=== PATIENT | female | born 1955 | race Caucasian/White ===

== ENCOUNTER → 2016-12-04 | Outpatient (REF) | payer OTHER | LOC: M SFHCWAGY 15:04 | PROVIDERS: ATTEND Nurse Practitioner Family | DX: Z12.4 Encounter for screening for malignant neoplasm of cervix (principal); N39.46 Mixed incontinence | CPT/HCPCS: 81001; 87086; G0123 ==

== ENCOUNTER → 2016-12-04 | Outpatient (CLI) | payer OTHER ==
--- NOTE | 2016-12-04 15:40 | REPMRS ---
Patient History The patient states she had a clinical breast exam in Patient is postmenopausal. No known family history of cancer. Benign excisional biopsy of the left breast, 1997. Digital Woman Screen Mammo: December 04, 2016 - Exam #: [id number] Bilateral CC and MLO view(s) were taken. Technologist: Vane Langley, Technologist Prior study comparison: 2010, digital bilateral screening mammo performed at [facility]. FINDINGS: There are scattered fibroglandular densities. There has been no change in the appearance of the mammogram from the prior studies. There is a mild amount of residual fibroglandular tissue which is fairly symmetric. There is no interval development of dominant mass, architectural distortion, or clustered microcalcification suggestive of malignancy. ASSESSMENT: BI-RADS/ACR category 1 mammogram. Negative. Recommendation Routine screening mammogram in 1 year (for women over age 40). This mammogram was interpreted with the aid of an FDA-approved computer-aided dectection system. Electronically Signed By: Jayant Leiva MD 12/04/16 [id number]
== END ==
LOC: M WHC 14:23
PROVIDERS: ATTEND Nurse Practitioner Family
DX: Z12.31 Encounter for screening mammogram for malignant neoplasm of breast (principal); Z78.0 Asymptomatic menopausal state

== ENCOUNTER → 2016-12-17 | Outpatient (CLI) | payer OTHER ==
--- NOTE | 2016-12-17 11:43 | REP ---
Clinical: Sprain. Technique: AP, lateral, bilateral oblique views of the left foot. Findings: Age-related degenerative changes to the mid and hind foot including areas of subchondral sclerosis primarily noted at the cuboid and calcaneus. No acute fracture or dislocation. Impression: Age-related degenerative changes to the mid and hind foot. Signed by Sergio Chatman MD 12/17/2016 11:34 A
== END ==
LOC: M ADAMS 11:20
PROVIDERS: ATTEND Physician Assistant Medical
DX: S93.602A Unspecified sprain of left foot, initial encounter (principal); M19.072 Primary osteoarthritis, left ankle and foot; X58.XXXA Exposure to other specified factors, initial encounter; Y93.9 Activity, unspecified; Y92.9 Unspecified place or not applicable; Y99.8 Other external cause status

== ENCOUNTER → 2017-10-10 | Outpatient (REF) | payer OTHER ==
[2017-10-10 11:57] LABS: BASO # 0.1 10^3/uL (0.0-0.2); BASO % 0.7 % (0.0-1.0); EOS # 0.2 10^3/uL (0.0-0.50); EOS % 2.5 % (0.0-3.0); IMMATURE GRANULOCYTE % 0.4 % (0-0); LYMPH # 1.8 10^3/uL (1.5-4.5); LYMPH % 23.9 % (24.0-44.0); MEAN CORPUSCULAR HEMOGLOBIN 28.5 pg (27.0-33.0); MEAN CORPUSCULAR HGB CONC 32.4 g/dl (32.0-36.5); MEAN CORPUSCULAR VOLUME 87.8 fl (80.0-96.0); MONO # 0.5 10^3/uL (0.0-0.8); MONO % 6.7 % (0.0-5.0); NEUTROPHILS # 4.9 10^3/uL (1.8-7.7); NEUTROPHILS % 65.8 % (36.0-66.0); PLATELET COUNT, AUTOMATED 301 10^3/uL (150-450); RED CELL DISTRIBUTION WIDTH 14.2 % (11.5-14.5); WHITE BLOOD COUNT 7.5 10^3/uL (4.0-10.0)
[2017-10-10 12:25] LABS: ALBUMIN 3.6 GM/DL (3.2-5.2); ALBUMIN/GLOBULIN RATIO 1.06 (1.00-1.93); ALKALINE PHOSPHATASE 82 U/L (45-117); ALT/SGPT 33 U/L (12-78); ANION GAP 7 MEQ/L (8-16); AST/SGOT 16 U/L (7-37); BILIRUBIN,TOTAL 0.6 MG/DL (0.2-1.0); BLOOD UREA NITROGEN 16 MG/DL (7-18); CALCIUM LEVEL 8.6 MG/DL (8.8-10.2); CARBON DIOXIDE LEVEL 27 MEQ/L (21-32); CHLORIDE LEVEL 107 MEQ/L (98-107); CHOLESTEROL LEVEL 202 MG/DL (<200); CREATININE FOR GFR 0.61 MG/DL (0.55-1.02); GLOMERULAR FILTRATION RATE > 60.0 (>45); GLUCOSE, FASTING 100 MG/DL (80-110); POTASSIUM SERUM 4.1 MEQ/L (3.5-5.1); SODIUM LEVEL 141 MEQ/L (136-145); TRIGLYCERIDES LEVEL 183 MG/DL (<150)
== END ==
LOC: M LABDRAW1 11:42
PROVIDERS: ATTEND Family Medicine
DX: E03.9 Hypothyroidism, unspecified (principal); E78.5 Hyperlipidemia, unspecified; R73.01 Impaired fasting glucose

== ENCOUNTER → 2018-09-16 | Outpatient (CLI) | payer OTHER | LOC: M ADAMS 12:48 | DX: M25.572 Pain in left ankle and joints of left foot (principal) | CPT/HCPCS: 73610 ==

== ENCOUNTER → 2018-12-03 | Outpatient (REF) | payer OTHER ==
[2018-12-03 11:11] LABS: BASO # 0.1 10^3/uL (0.0-0.2); BASO % 0.7 % (0.0-1.0); EOS # 0.2 10^3/uL (0.0-0.50); EOS % 2.9 % (0.0-3.0); HEMATOCRIT 42.7 % (36.0-47.0); HEMOGLOBIN 13.3 g/dl (12.0-15.5); LYMPH # 1.7 10^3/uL (1.5-4.5); LYMPH % 20.6 % (24.0-44.0); MEAN CORPUSCULAR HEMOGLOBIN 27.9 pg (27.0-33.0); MEAN CORPUSCULAR HGB CONC 31.1 g/dl (32.0-36.5); MEAN CORPUSCULAR VOLUME 89.5 fl (80.0-96.0); MONO # 0.6 10^3/uL (0.0-0.8); MONO % 6.9 % (0.0-5.0); NEUTROPHILS # 5.7 10^3/uL (1.8-7.7); NEUTROPHILS % 68.3 % (36.0-66.0); PLATELET COUNT, AUTOMATED 325 10^3/uL (150-450); RED BLOOD COUNT 4.77 10^6/uL (4.00-5.40); WHITE BLOOD COUNT 8.4 10^3/uL (4.0-10.0)
[2018-12-03 11:20] LABS: ALBUMIN 3.6 GM/DL (3.2-5.2); ALT/SGPT 22 U/L (12-78); BILIRUBIN,TOTAL 0.4 MG/DL (0.2-1.0); BLOOD UREA NITROGEN 19 MG/DL (7-18); CALCIUM LEVEL 8.9 MG/DL (8.8-10.2); CARBON DIOXIDE LEVEL 28 MEQ/L (21-32); CHLORIDE LEVEL 108 MEQ/L (98-107); CHOLESTEROL LEVEL 168 MG/DL (<200); CREATININE FOR GFR 0.62 MG/DL (0.55-1.30); FREE T3 2.8 PG/ML (2.2-4.0); FREE T4 0.94 NG/DL (0.76-1.46); GLOMERULAR FILTRATION RATE > 60.0 (>45); GLUCOSE, FASTING 117 MG/DL (70-100); HDL CHOLESTEROL 50 MG/DL (>40); LDL CHOLESTEROL 90 MG/DL (<100); NON-HDL-C 118 MG/DL; POTASSIUM SERUM 4.7 MEQ/L (3.5-5.1); SODIUM LEVEL 141 MEQ/L (136-145); TOTAL PROTEIN 6.8 GM/DL (6.4-8.2); TRIGLYCERIDES LEVEL 142 MG/DL (<150)
[2018-12-03 11:55] LABS: HEMOGLOBIN A1c 5.6 %
[2018-12-04 10:04] LABS: HEPATITIS C VIRUS ABY INDEX 0.1 INDEX (<0.8)
== END ==
LOC: M LABDRAW1 10:24
PROVIDERS: ATTEND Family Medicine
DX: Z13.818 Encounter for screening for other digestive system disorders (principal); E03.9 Hypothyroidism, unspecified; R73.01 Impaired fasting glucose; I10 Essential (primary) hypertension

== ENCOUNTER → 2018-12-16 | Outpatient (REF) | payer OTHER ==
[2018-12-16 13:21] LABS: HEMATOCRIT 43.3 % (36.0-47.0); HEMOGLOBIN 13.6 g/dl (12.0-15.5); MEAN CORPUSCULAR HGB CONC 31.4 g/dl (32.0-36.5); MEAN CORPUSCULAR VOLUME 89.3 fl (80.0-96.0); PLATELET COUNT, AUTOMATED 324 10^3/uL (150-450); RED BLOOD COUNT 4.85 10^6/uL (4.00-5.40); WHITE BLOOD COUNT 8.4 10^3/uL (4.0-10.0)
[2018-12-16 13:28] LABS: APPEARANCE, URINE CLEAR (CLEAR); BACTERIA, URINE AUTO NEGATIVE (NEGATIVE); BILIRUBIN, URINE AUTO NEGATIVE (NEGATIVE); BLOOD, URINE BLOOD NEGATIVE (NEGATIVE); GLUCOSE, URINE (UA) AUTO NEGATIVE (NEGATIVE); KETONE, URINE AUTO NEGATIVE (NEGATIVE); LEUKOCYTE ESTERASE, URINE AUTO NEGATIVE (NEGATIVE); NITRITE, URINE AUTO NEGATIVE (NEGATIVE); PROTEIN, URINE AUTO NEGATIVE (NEGATIVE); RBC, URINE AUTO 0 /HPF (0-3); SPECIFIC GRAVITY URINE AUTO 1.018 (1.002-1.035); SQUAMOUS EPITHELIAL CELL UR AU 0 /HPF (0-6); UROBILINOGEN, URINE AUTO 0.2 mg/dL (0.0-2.0); WBC, URINE AUTO 1 /HPF (0-3)
[2018-12-16 13:42] LABS: COLOR, URINE YELLOW (YELLOW)
[2018-12-16 13:44] LABS: INR 0.95; PROTHROMBIN TIME 12.8 SECONDS (12.1-14.4)
[2018-12-16 13:45] LABS: PARTIAL THROMBOPLASTIN TIME 33.3 SECONDS (25.4-37.6)
== END ==
LOC: M LABDRAW1 12:44
PROVIDERS: ATTEND Student in an Organized Health Care Education/Training Program
DX: Z01.818 Encounter for other preprocedural examination (principal); N39.3 Stress incontinence (female) (male)

== ENCOUNTER → 2019-01-01 | Outpatient (CLI) | payer OTHER ==
--- NOTE | 2019-01-02 05:02 | REP ---
Clinical: Lung screening. Comparison: None Technique: Axial low-dose noncontrast images from the thoracic inlet to the upper abdomen using lung screening technique. Findings: Lung forman demonstrate chronic interstitial changes with mild bronchiectasis as well as mild/moderate subpleural fibrosis and very subtle areas of ground-glass opacity which limit evaluation for small nodules. A 6.5 mm soft tissue nodule in the periphery of the left lower lobe is identified but remains stable compared to 2011. No further significant acute nodule or mass lesion is identified. No focal consolidation, effusion, or pneumothorax. Mediastinal and possible hilar adenopathy suspected. Impression: Lung-RADS category II-S. While no definite suspicious nodule is appreciated, significant findings as described above limit evaluation. Initial followup examination at 6 months may be warranted. Electronically Signed by Sergio Chatman MD 01/02/2019 04:53 A
== END ==
LOC: M RAD 11:08
PROVIDERS: ATTEND Nurse Practitioner Family
DX: Z87.891 Personal history of nicotine dependence (principal); R91.8 Other nonspecific abnormal finding of lung field; R91.1 Solitary pulmonary nodule

== ENCOUNTER → 2019-03-31 | Outpatient (CLI) | payer MEDICARE, MEDICAID ==
--- NOTE | 2019-03-31 12:40 | REP ---
CT CHEST WITHOUT IV CONTRAST: CT chest performed without IV contrast with high resolution axial 1 mm slice thickness. Sagittal and coronal reconstruction images are performed. There is diffuse moderate degree of interstitial fibrosis, to a greater extent in the periphery of both lungs. These changes involve all lobes. There is mild bronchiectasis also involving all lobes, more so in the lower lobes bilaterally. There is mild diffuse peripheral emphysematous change. Moderate diffuse subpleural fibrosis is noted. 6 mm nodular density in the left lower lobe has remained stable since the CT of 07/20/2011. Mildly enlarged right paratracheal lymph node measures 1.5 cm in a precarinal lymph node measures 1.3 cm in short axis. A few other smaller lymph nodes are seen in the subcarinal and hilar regions. Heart is not enlarged. There is no pleural or pericardial effusion. Patient has had a prior cholecystectomy with no other definite abnormality in the visualized upper abdomen. There are degenerative changes of the spine. IMPRESSION: Diffuse moderate interstitial fibrosis predominantly in any subpleural location with associated mild emphysematous changes. There is also mild diffuse bronchiectasis, more so inferiorly. Stable benign 6 mm nodule left lower lobe. Mildly enlarged lymph nodes are seen in the right paratracheal and precarinal regions. Electronically Signed by Jayant Leiva MD 04/01/2019 11:34 A
== END ==
LOC: M RAD 11:01
PROVIDERS: ATTEND Nurse Practitioner Family
DX: R06.00 Dyspnea, unspecified (principal); J47.1 Bronchiectasis with (acute) exacerbation; R91.1 Solitary pulmonary nodule; R59.0 Localized enlarged lymph nodes

== ENCOUNTER → 2019-11-18 | Outpatient (CLI) | payer MEDICARE, MEDICAID ==
--- NOTE | 2019-11-18 13:29 | REP ---
Right foot four views: There is a fracture at the base of the fifth digit metatarsal. This may be old. Correlation with clinical point tenderness is recommended. Mineralization and joint spaces are otherwise unremarkable. There are no calcifications. There are calcaneal plantar and Achilles spurs. Impression: Fifth digit metatarsal base fracture, possibly old. Calcaneal spurs. Electronically Signed by Jayant Paul MD 11/18/2019 01:21 P
--- NOTE | 2019-11-18 14:25 | REP ---
Right ankle four views : There is no fracture or dislocation. Mineralization and joint spaces are normal. There are no calcifications or foreign bodies. There are calcaneal Achilles and plantar spurs. Impression: Negative right ankle . There are calcaneal spurs. Electronically Signed by Jayant Paul MD 11/18/2019 02:16 P
== END ==
LOC: M ADAMS 11:27
PROVIDERS: ATTEND Nurse Practitioner Family
DX: S92.351A Displaced fracture of fifth metatarsal bone, right foot, initial encounter for closed fracture (principal); M77.31 Calcaneal spur, right foot; X58.XXXA Exposure to other specified factors, initial encounter; Y92.9 Unspecified place or not applicable; M76.61 Achilles tendinitis, right leg

== ENCOUNTER → 2019-12-03 | Outpatient (REF) | payer MEDICARE, MEDICAID ==
[2019-12-03 13:04] LABS: HEMATOCRIT 45.5 % (36.0-47.0); HEMOGLOBIN 14.2 g/dl (12.0-15.5); MEAN CORPUSCULAR HEMOGLOBIN 28.1 pg (27.0-33.0); MEAN CORPUSCULAR HGB CONC 31.2 g/dl (32.0-36.5); MEAN CORPUSCULAR VOLUME 89.9 fl (80.0-96.0); PLATELET COUNT, AUTOMATED 332 10^3/uL (150-450); RED BLOOD COUNT 5.06 10^6/uL (4.00-5.40)
[2019-12-03 13:37] LABS: ALBUMIN 3.6 GM/DL (3.2-5.2); ALT/SGPT 23 U/L (12-78); BILIRUBIN,TOTAL 0.6 MG/DL (0.2-1.0); BLOOD UREA NITROGEN 14 MG/DL (7-18); CALCIUM LEVEL 8.8 MG/DL (8.8-10.2); CARBON DIOXIDE LEVEL 26 MEQ/L (21-32); CHLORIDE LEVEL 108 MEQ/L (98-107); CHOLESTEROL LEVEL 180 MG/DL (<200); CREATININE FOR GFR 0.68 MG/DL (0.55-1.30); FREE T3 2.4 PG/ML (2.2-4.0); FREE T4 0.98 NG/DL (0.76-1.46); GLOMERULAR FILTRATION RATE > 60.0 (>45); GLUCOSE, FASTING 105 MG/DL (70-100); HDL CHOLESTEROL 50 MG/DL (>40); LDL CHOLESTEROL 94 MG/DL (<100); NON-HDL-C 130 MG/DL; POTASSIUM SERUM 4.2 MEQ/L (3.5-5.1); SODIUM LEVEL 141 MEQ/L (136-145); TRIGLYCERIDES LEVEL 182 MG/DL (<150)
== END ==
LOC: M LABDRAW1 08:48
PROVIDERS: ATTEND Family Medicine
DX: E03.9 Hypothyroidism, unspecified (principal); I10 Essential (primary) hypertension; R73.01 Impaired fasting glucose

== ENCOUNTER → 2019-12-09 | Outpatient (REF) | payer MEDICARE, MEDICAID ==
[2019-12-09 12:15] LABS: BASO # 0.1 10^3/uL (0.0-0.2); BASO % 0.6 % (0.0-1.0); EOS # 0.4 10^3/uL (0.0-0.5); EOS % 3.7 % (0.0-3.0); HEMATOCRIT 42.7 % (36.0-47.0); HEMOGLOBIN 13.7 g/dl (12.0-15.5); LYMPH # 1.1 10^3/uL (1.5-5.0); LYMPH % 11.2 % (24.0-44.0); MEAN CORPUSCULAR HEMOGLOBIN 28.3 pg (27.0-33.0); MEAN CORPUSCULAR HGB CONC 32.1 g/dl (32.0-36.5); MEAN CORPUSCULAR VOLUME 88.2 fl (80.0-96.0); MONO # 0.6 10^3/uL (0.0-0.8); MONO % 6.3 % (0.0-5.0); NEUTROPHILS # 7.5 10^3/uL (1.5-8.5); NEUTROPHILS % 77.8 % (36.0-66.0); PLATELET COUNT, AUTOMATED 338 10^3/uL (150-450); RED BLOOD COUNT 4.84 10^6/uL (4.00-5.40); WHITE BLOOD COUNT 9.6 10^3/uL (4.0-10.0)
[2019-12-09 12:22] LABS: URIC ACID 5.9 MG/DL (2.6-6.0)
[2019-12-09 12:32] LABS: ERYTHROCYTE SEDIMENTATION RATE 63 mm/hr (0-30)
[2019-12-11 00:08] LABS: ANTI DOUBLE STRAND-DNA AB <1 IU/mL (0-9); ANTINUCLEAR ANTIBODIES DIRECT Positive (Negative); CYCLIC CITRULLINATED PEPTIDE > 250 units (0-19); Lyme Disease IgG/IgM Antibodie <0.91 ISR (0.00-0.90); Lyme Disease IgM Ab Quantitati <0.80 index (0.00-0.79); RNP ANTIBODIES 0.2 AI (0.0-0.9); SJOGREN'S ANTI SS-A 1.7 AI (0.0-0.9); SJOGREN'S ANTI SS-B <0.2 AI (0.0-0.9); SMITH ANTIBODIES <0.2 AI (0.0-0.9)
== END ==
LOC: M LABDRAW1 11:31
PROVIDERS: ATTEND Family Medicine
DX: M06.4 Inflammatory polyarthropathy (principal)

== ENCOUNTER 2020-03-27 21:47 | Emergency (ER) | payer MEDICARE, MEDICAID ==
[~2020-03-27] VITALS: Ht 162.6 cm; Wt 110.0 kg
[2020-03-27] MEDS ORDERED: FOLI1TAB11 PO (22:18)
[2020-03-27] MEDS ORDERED: PRED10TA2 PO (22:18)
[2020-03-27] MEDS ORDERED: MARIJUANA OIL (22:18)
[2020-03-27] MEDS ORDERED: HYDR-3713 PO (22:18)
[2020-03-27] MEDS ORDERED: AZEL1SPR3 INH (22:18)
[2020-03-27] MEDS ORDERED: SIMV10TA21 PO (22:18)
[2020-03-27] MEDS ORDERED: LISI10TA15 PO (22:18)
[2020-03-27] MEDS ORDERED: LEFL1TAB4 PO (22:18)
[2020-03-27] MEDS ORDERED: ALBU8.5H INH (22:18)
[2020-03-27] MEDS ORDERED: MORPHINE 4 MG/ML 1ML VIAL/SYRINGE (J2270) IV ONE (23:30)
[2020-03-27] MEDS ORDERED: METHOCARBAMOL 1,000 MG/10 ML VIAL (J2800) IV ONE (23:30)
[2020-03-27 23:59] LABS: BASO # 0.1 10^3/uL (0.0-0.2); BASO % 0.4 % (0.0-1.0); EOS # 0.2 10^3/uL (0.0-0.5); EOS % 1.1 % (0.0-3.0); HEMATOCRIT 39.8 % (36.0-47.0); LYMPH # 1.7 10^3/uL (1.5-5.0); LYMPH % 11.8 % (24.0-44.0); MEAN CORPUSCULAR HEMOGLOBIN 29.3 pg (27.0-33.0); MEAN CORPUSCULAR HGB CONC 32.7 g/dl (32.0-36.5); MEAN CORPUSCULAR VOLUME 89.8 fl (80.0-96.0); MONO # 1.1 10^3/uL (0.0-0.8); MONO % 7.9 % (0.0-5.0); NEUTROPHILS # 11.2 10^3/uL (1.5-8.5); PLATELET COUNT, AUTOMATED 317 10^3/uL (150-450); RED BLOOD COUNT 4.43 10^6/uL (4.00-5.40); WHITE BLOOD COUNT 14.3 10^3/uL (4.0-10.0)
[2020-03-28 00:27] LABS: ERYTHROCYTE SEDIMENTATION RATE 67 mm/hr (0-30)
[2020-03-28] MEDS ORDERED: MORPHINE 4 MG/ML 1ML VIAL/SYRINGE (J2270) IV ONE (00:45)
[2020-03-28 01:19] LABS: APPEARANCE, URINE HAZY (CLEAR); BACTERIA, URINE AUTO NEGATIVE (NEGATIVE); BILIRUBIN, URINE AUTO NEGATIVE (NEGATIVE); BLOOD, URINE BLOOD NEGATIVE (NEGATIVE); COLOR, URINE YELLOW (YELLOW); GLUCOSE, URINE (UA) AUTO NEGATIVE (NEGATIVE); KETONE, URINE AUTO 1+ mg/dL (NEGATIVE); LEUKOCYTE ESTERASE, URINE AUTO NEGATIVE (NEGATIVE); MUCUS, URINE SMALL (NEGATIVE); NITRITE, URINE AUTO NEGATIVE (NEGATIVE); PROTEIN, URINE AUTO NEGATIVE (NEGATIVE); RBC, URINE AUTO 2 /HPF (0-3); SPECIFIC GRAVITY URINE AUTO 1.024 (1.002-1.035); SQUAMOUS EPITHELIAL CELL UR AU 3 /HPF (0-6); UROBILINOGEN, URINE AUTO 0.2 mg/dL (0.0-2.0); WBC, URINE AUTO 2 /HPF (0-3)
[2020-03-28] MEDS ORDERED: HYDR-3713 PO (01:34)
[2020-03-28 01:58] VITALS: BP 155/104
== END 2020-03-28 01:59 | disposition home or self-care (01) ==
LOC: M ED 21:47
DX: M06.9 Rheumatoid arthritis, unspecified (principal); M54.5 Low back pain; I10 Essential (primary) hypertension; J84.10 Pulmonary fibrosis, unspecified; M41.9 Scoliosis, unspecified; M48.00 Spinal stenosis, site unspecified; Z79.899 Other long term (current) drug therapy; Z88.5 Allergy status to narcotic agent
CPT/HCPCS: 80047; 81001; 85025; 85652; 86140; 96374; 96375; 96376; 99284; J2270; J2800

== ENCOUNTER → 2020-07-03 | Outpatient (REF) | payer MEDICARE, MEDICAID ==
[~2020-07-03] MED LIST: ALBU8.5H INH; AZEL1SPR3 INH; FOLI1TAB11 PO; HYDR-3713 PO; LEFL1TAB4 PO; LISI10TA15 PO; MARIJUANA OIL; PRED10TA2 PO; SIMV10TA21 PO
== END ==
LOC: M LAB REF 13:11
PROVIDERS: ATTEND Physician Assistant
DX: J02.9 Acute pharyngitis, unspecified (principal)

== ENCOUNTER → 2020-07-21 | Outpatient (CLI) | payer MEDICARE, MEDICAID ==
--- NOTE | 2020-07-28 11:33 | REP ---
RIGHT SHOULDER SERIES HISTORY: Pain. TECHNIQUE: Three views of the right shoulder performed. FINDINGS: There is no acute fracture or dislocation. There is mild narrowing and spurring at the acromioclavicular and glenohumeral joints. There is some calcification of the coracoclavicular ligament. I see no other significant findings except for incidental note made of diffuse fibrotic change in the right lung. IMPRESSION: Mild degenerative changes. MTDD
== END ==
LOC: M ADAMS 11:14
PROVIDERS: ATTEND Physician Assistant
DX: M25.711 Osteophyte, right shoulder (principal)

== ENCOUNTER → 2020-11-09 | Outpatient (CLI) | payer MEDICARE, MEDICAID ==
--- NOTE | 2020-11-09 16:57 | REP ---
INDICATION: COUGH. COMPARISON: Comparison chest x-ray April 19, 2014. TECHNIQUE: Two views.. FINDINGS: There are bilateral patchy peripheral interstitial infiltrates suggestive of viral pneumonia. These are new findings when compared to the 2014 prior study. The pleural angles are sharp. Heart is not enlarged. There are degenerative changes in the thoracic spine. IMPRESSION: Bilateral patchy peripheral interstitial infiltrates suggestive of viral pneumonia. Commonly reported imaging features of COVID 19 pneumonia are present. Other processes such as influenza pneumonia, drug toxicity, and connective tissue disease can produce a similar pattern. . <Electronically signed by Mateusz Membreno > 11/09/20 [id number]
== END ==
LOC: M ADAMS 11:14
PROVIDERS: ATTEND Physician Assistant
DX: R91.8 Other nonspecific abnormal finding of lung field (principal); R05 Cough

== ENCOUNTER → 2020-11-22 | Outpatient (CLI) | payer MEDICARE, MEDICAID ==
--- NOTE | 2020-11-22 18:26 | REP ---
INDICATION: J84.9-INTERSTITIAL PULMONARY DISEASE, UNSPECIFIED. COMPARISON: 04/27/2020. TECHNIQUE: CT chest performed without the use of intravenous contrast. Sagittal and coronal reconstruction images are performed. FINDINGS: Lungs: There is no acute infiltrate. Moderate diffuse interstitial fibrotic changes seen, predominantly peripherally, stable. Mild diffuse subpleural honeycombing is noted. Bronchiectasis is again noted. There is no new nodular opacity. Mediastinum: A right paratracheal lymph node has decreased in size not 1.1 cm in short axis. Precarinal lymph node is also decreased in size, 1.3 cm in short axis. Leigh: No gross adenopathy. Axilla: No gross adenopathy. Pleura: No effusion. Heart: Not enlarged. Thoracic aorta: No aneurysm. Upper abdominal structures: Prior cholecystectomy. Visualized osseous structures: There are degenerative changes of the spine without compression deformity. IMPRESSION: Stable interstitial fibrosis. Decreased size of mediastinal lymph nodes. <Electronically signed by Jayant Leiva > 11/22/20 [id number]
== END ==
LOC: M RAD 17:17
PROVIDERS: ATTEND Physician Assistant
DX: J84.10 Pulmonary fibrosis, unspecified (principal)

== ENCOUNTER → 2020-12-01 | Outpatient (REF) | payer MEDICARE, MEDICAID ==
[2020-12-01 12:59] LABS: HEMATOCRIT 42.9 % (36.0-47.0); HEMOGLOBIN 13.6 g/dl (12.0-15.5); MEAN CORPUSCULAR HEMOGLOBIN 29.5 pg (27.0-33.0); MEAN CORPUSCULAR HGB CONC 31.7 g/dl (32.0-36.5); MEAN CORPUSCULAR VOLUME 93.1 fl (80.0-96.0); PLATELET COUNT, AUTOMATED 315 10^3/uL (150-450); RED BLOOD COUNT 4.61 10^6/uL (4.00-5.40); WHITE BLOOD COUNT 7.9 10^3/uL (4.0-10.0)
[2020-12-01 13:42] LABS: ALBUMIN 3.3 GM/DL (3.2-5.2); ALT/SGPT 23 U/L (12-78); BILIRUBIN,TOTAL 0.6 MG/DL (0.2-1.0); BLOOD UREA NITROGEN 17 MG/DL (7-18); CARBON DIOXIDE LEVEL 28 MEQ/L (21-32); CHLORIDE LEVEL 105 MEQ/L (98-107); CHOLESTEROL LEVEL 169 MG/DL (<200); CHOLESTEROL RISK RATIO 2.283 (<5); CREATININE FOR GFR 0.62 MG/DL (0.55-1.30); FREE T3 2.4 PG/ML (2.2-4.0); GLOMERULAR FILTRATION RATE > 60.0 (>45); GLUCOSE, FASTING 79 MG/DL (70-100); HDL CHOLESTEROL 74 MG/DL (>40); LDL CHOLESTEROL 63 MG/DL (<100); NON-HDL-C 95 MG/DL; POTASSIUM SERUM 3.6 MEQ/L (3.5-5.1); SODIUM LEVEL 140 MEQ/L (136-145); TOTAL PROTEIN 6.4 GM/DL (6.4-8.2); TRIGLYCERIDES LEVEL 159 MG/DL (<150)
[2020-12-01 13:44] LABS: HEMOGLOBIN A1c 5.4 %
== END ==
LOC: M LABDRWAD 12:31
PROVIDERS: ATTEND Family Medicine
DX: E03.9 Hypothyroidism, unspecified (principal); E78.5 Hyperlipidemia, unspecified; R73.01 Impaired fasting glucose; I10 Essential (primary) hypertension

== ENCOUNTER → 2021-03-16 | Outpatient (REF) | payer MEDICARE, MEDICAID ==
[2021-03-16 12:54] LABS: BASO # 0.1 10^3/uL (0.0-0.2); EOS # 0.3 10^3/uL (0.0-0.5); EOS % 2.1 % (0.0-3.0); LYMPH # 1.7 10^3/uL (1.5-5.0); LYMPH % 13.3 % (24.0-44.0); MEAN CORPUSCULAR HEMOGLOBIN 29.6 pg (27.0-33.0); MEAN CORPUSCULAR HGB CONC 31.1 g/dl (32.0-36.5); MEAN CORPUSCULAR VOLUME 95.1 fl (80.0-96.0); MONO # 0.9 10^3/uL (0.0-0.8); MONO % 7.4 % (2.0-8.0); NEUTROPHILS # 9.4 10^3/uL (1.5-8.5); NEUTROPHILS % 75.4 % (36.0-66.0); PLATELET COUNT, AUTOMATED 424 10^3/uL (150-450); RED BLOOD COUNT 4.73 10^6/uL (4.00-5.40); WHITE BLOOD COUNT 12.5 10^3/uL (4.0-10.0)
[2021-03-16 13:12] LABS: ALBUMIN 3.8 GM/DL (3.2-5.2); ALT/SGPT 18 U/L (12-78); BILIRUBIN,TOTAL 0.7 MG/DL (0.2-1.0); BLOOD UREA NITROGEN 15 MG/DL (7-18); C REACTIVE PROTEIN QUANTITATIV 1.02 MG/DL (0.00-0.30); CALCIUM LEVEL 9.5 MG/DL (8.8-10.2); CARBON DIOXIDE LEVEL 25 MEQ/L (21-32); CHLORIDE LEVEL 105 MEQ/L (98-107); GLOMERULAR FILTRATION RATE > 60.0 (>45); GLUCOSE, FASTING 85 MG/DL (70-100); POTASSIUM SERUM 4.4 MEQ/L (3.5-5.1); SODIUM LEVEL 137 MEQ/L (136-145); TOTAL PROTEIN 7.7 GM/DL (6.4-8.2)
[2021-03-16 13:30] LABS: ERYTHROCYTE SEDIMENTATION RATE 54 mm/hr (0-30)
== END ==
LOC: M LABDRWAD 12:16
PROVIDERS: ATTEND Family Medicine
DX: M06.9 Rheumatoid arthritis, unspecified (principal)

== ENCOUNTER 2021-07-25 09:49 | Emergency (ER) | payer MEDICARE, MEDICAID ==
[~2021-07-25] VITALS: Ht 162.6 cm; Wt 87.7 kg
[2021-07-25] MEDS ORDERED: NS 500 ML IV ONE (11:00)
[2021-07-25 11:54] LABS: BASO % 0.6 % (0.0-1.0); HEMATOCRIT 42.6 % (36.0-47.0); HEMOGLOBIN 14.3 g/dl (12.0-15.5); LYMPH # 0.3 10^3/uL (1.5-5.0); LYMPH % 5.9 % (24.0-44.0); MEAN CORPUSCULAR HEMOGLOBIN 28.5 pg (27.0-33.0); MEAN CORPUSCULAR HGB CONC 33.6 g/dl (32.0-36.5); MONO # 0.4 10^3/uL (0.0-0.8); MONO % 7.2 % (2.0-8.0); NEUTROPHILS # 4.7 10^3/uL (1.5-8.5); NEUTROPHILS % 85.2 % (36.0-66.0); PLATELET COUNT, AUTOMATED 137 10^3/uL (150-450); RED BLOOD COUNT 5.01 10^6/uL (4.00-5.40); WHITE BLOOD COUNT 5.5 10^3/uL (4.0-10.0)
--- NOTE | 2021-07-25 11:55 | REP ---
INDICATION: Coronavirus workup. COMPARISON: 11/09/2020 a two view exam TECHNIQUE: Portable FINDINGS: The technique utilized in obtaining the radiograph has magnified the cardiac silhouette and accentuated the interstitial markings. The patchy opacities seen previously have not changed significantly when the technical differences between the examinations are taken into consideration. The pleural angles remain sharp. No new abnormal opacities have developed. The cardiomediastinal silhouette the osseous structures are stable. IMPRESSION: No significant change other than technique. <Electronically signed by Mervin Cutler > 07/25/21 [id number]
[2021-07-25 12:20] LABS: ABG BASE EXCESS -3.3 (-2.0-2.0); ABG HCO3 20.4 MEQ/L (22.0-26.0); ABG O2 SATURATION 97.2 % (95.0-99.0); ABG PARTIAL PRESSURE CO2 33.3 mmHg (35.0-45.0); ABG PARTIAL PRESSURE O2 113.4 mmHg (75.0-100.0); ABG STANDARD HCO3 21.7 MEQ/L (22.0-26.0); ABG TOTAL CO2 21.5 MEQ/L (23.0-31.0); ABG pH (ARTERIAL) 7.406 UNITS (7.350-7.450)
[2021-07-25] MEDS ORDERED: ACETAMINOPHEN TAB 650MG DOSE (2X325MG) PO ONE (12:45)
[2021-07-25 12:51] LABS: CK-MB VALUE MASS < 1.0 NG/ML (<3.6); CPK CREATINE PHOSPHOKINASE 49 U/L (26-192); LDH LACTATE DEHYDROGENASE 415 U/L (84-246); MB/CK RELATIVE INDEX 2.04 (< OR =4); TROPONIN I 0.03 NG/ML (< 0.10)
[2021-07-25 12:52] LABS: C REACTIVE PROTEIN QUANTITATIV 7.48 MG/DL (0.00-0.30); FERRITIN 1239 NG/ML (8-252)
[2021-07-25 13:01] LABS: HEMATOCRIT 43.5 % (36.0-47.0); HEMOGLOBIN 14.6 g/dl (12.0-15.5)
[2021-07-25 13:16] LABS: RSV AMPLIFICATION NEGATIVE (NEGATIVE)
[2021-07-25 13:30] LABS: BLOOD UREA NITROGEN 27 MG/DL (7-18); CALCIUM LEVEL 8.1 MG/DL (8.8-10.2); CARBON DIOXIDE LEVEL 26 MEQ/L (21-32); CHLORIDE LEVEL 95 MEQ/L (98-107); CREATININE FOR GFR 0.78 MG/DL (0.55-1.30); GLOMERULAR FILTRATION RATE > 60.0 (>45); GLUCOSE, FASTING 88 MG/DL (70-100); POTASSIUM SERUM 3.9 MEQ/L (3.5-5.1); SODIUM LEVEL 129 MEQ/L (136-145)
[2021-07-25] MEDS ORDERED: ISOVUE-370 76% 100ML VIAL As Ordered ONE (13:59)
--- NOTE | 2021-07-25 14:56 | REP ---
INDICATION: + covid , hypoxia + d-dimer COMPARISON: None. TECHNIQUE: Axial contrast enhanced images from the thoracic inlet to the upper abdomen using pulmonary embolus technique with multiplanar re-formations. 75 ml Isovue 370 intravenous contrast material administered without complication. This CT examination was performed using the following dose reduction techniques: Automated exposure control, adjustment of mA and/or kv according to the patient's size, and use of iterative reconstruction technique. FINDINGS: Satisfactory enhancement of the pulmonary vasculature is achieved and no filling defects are identified to suggest pulmonary embolus. Lung forman demonstrate diffuse chronic age-related interstitial changes with superimposed scattered bilateral opacities consistent with the given history of COVID-19 pulmonary disease. No effusion. No pneumothorax. Presumed reactive mediastinal and hilar adenopathy noted. Tracheobronchial tree is patent. Further evaluation of the mediastinum demonstrates atherosclerotic changes to the thoracic aorta and coronary arteries without aneurysm or dissection. Heart is upper limits of normal in size without pericardial effusion. IMPRESSION: No evidence for pulmonary embolus. Bilateral parenchymal opacities consistent with COVID-19 pulmonary disease. <Electronically signed by Sergio Chatman > 07/25/21 [id number]
[2021-07-25] MEDS ORDERED: BENZ200C70 PO (15:51)
[2021-07-25] MEDS ORDERED: ONDA4TAB6 PO (15:51)
[2021-07-25 17:00] VITALS: BP 119/67
[2021-07-26] MEDS ORDERED: ROSU10TA6 PO (13:14)
[2021-07-26] MEDS ORDERED: OXYC10TA3 PO (13:14)
[2021-07-26] MEDS ORDERED: TRAZ1TAB10 PO (13:14)
--- NOTE | 2021-07-27 17:18 | ECGEPIP ---
[facility] - ED Test Date: 2021-07-25 Pat Name: MARY WILLIS Department: Room: - Gender: Female Intelligence Officer Basic: naga : 1955 Requested By: ELIZABETH BOYD PA-C. Order Number: [id number] Reading MD: Grace Lindo Measurements Intervals [place] Rate: 90 P: 20 MD: 134 QRS: -70 QRSD: 90 T: -3 QT: 368 QTc: 450 Interpretive Statements Sinus rhythm with premature atrial complexes Left axis deviation ST & T wave abnormality, consider anterior ischemia, clinical correlation no prior Electronically Signed on 07-27-2021 17:18:01 EDT by Grcae Lindo
== END 2021-07-25 17:29 | disposition home or self-care (01) ==
LOC: EDBD 09:49 → M ED 09:49
DX: U07.1 COVID-19 (principal); I10 Essential (primary) hypertension; J84.10 Pulmonary fibrosis, unspecified; M06.9 Rheumatoid arthritis, unspecified; Z79.82 Long term (current) use of aspirin; Z79.899 Other long term (current) drug therapy; Z88.5 Allergy status to narcotic agent

== ENCOUNTER 2021-07-26 09:40 | Outpatient (CLI) | payer MEDICARE, MEDICAID ==
--- NOTE | 2021-07-25 17:16 | CR.PDOC ---
General Date of Consultation: Jul 25, 2021 Referring Provider: ELIZABETH BOYD PA-C. Attending Physician: REINIER BLACK MD Consultation REASON FOR CONSULTATION/CHIEF COMPLAINT: covid-19 infection, for MABs HISTORY OF PRESENT ILLNESS: 66 yo W with a history of rheumatoid arthritis, pulmonary fibrosis w/ chronic hypoxemic respiratory failure on baseline 2L NC, who follows with Dr. Liriano, obesity, HTN, HLD, chronic back pain who developed body aches, congestion, loose stools and fever six days ago and presented to the ED for persisting symptoms and was found to have covid-19 infection. She otherwise denies any SOB, ZAPATA, worsening hypoxemia from her baseline, chest pain, palpitations or pleurisy. She had basic labs that were notable for mild hyponatremia i/s/o poor PO for which she was given 500cc NS bolus and moderately elevated inflammatory markers and given her RA, pulmonary fibrosis and obesity was recommended to receive the MABs to reduce risk of severe covid-19 related illness. ALLERGIES: Please see below. HOME MEDICATIONS: Please see below. PAST MEDICAL HISTORY: RA Pulmonary fibrosis Chronic hypoxemic respiratory failure on 2L at baseline HTN HLD Chronic back pain hypothyroidism PAST SURGICAL HISTORY: L breast biopsy Back surgery Cholecystectomy FAMILY HISTORY: Father: Had alcohol use disorder and from a brain hemorrhage Mother: had a history of COPD, had a PPM, HTN and cardiomegaly SOCIAL HISTORY: Non-smoker No alcohol No illicit drug use REVIEW OF SYSTEMS: 10 point ROS was completed and was positive only for the above noted elements in the HPI and otherwise negative. PHYSICAL EXAMINATION: VITAL SIGNS: Please see below. GENERAL APPEARANCE: NAD HEENT: NCAT, EOMI, MMM RESPIRATORY: Velcro-like bibasilar crackles, no wheezing CARDIOVASCULAR: RRR, no m/r/g ABDOMEN: soft, NTND EXTREMITIES: WWP, no LE edema NEUROLOGICAL: CN 3-12 intact, grossly nonfocal PSYCHIATRIC: AOx3 LABORATORY DATA: Please see below. ASSESSMENT: 66 yo W with a history of rheumatoid arthritis, pulmonary fibrosis w/ chronic hypoxemic respiratory failure on baseline 2L NC, obesity, HTN, HLD, chronic back pain who developed body aches, congestion, loose stools and fever six days ago and presented to the ED for persisting symptoms and was found to have covid-19 infection who is now being admitted for outpatient observation to receive the MABs to reduce risk of severe covid-19 related illness. Covid-19 Infection: -MABs and PRN infusion reaction meds are ordered per protocol -Please continue on 2L NC per home settings. To continue chronic home meds as prescribed upon discharge home. Allergies Coded Allergies: codeine (Verified Allergy, Unknown, respiratory issues, 03/27/20) Home Medications Scheduled Folic Acid (Folic Acid) 1 Mg Tablet, 1 TAB PO DAILY, (Reported) Leflunomide (Leflunomide) 20 Mg Tablet, 1 TAB PO DAILY, (Reported) Lisinopril/Hydrochlorothiazide (Lisinopril-Hctz 10-12.5 mg Tab) 1 Each Tablet, 1 TAB PO DAILY, (Reported) Prednisone (Prednisone) 10 Mg Tablet, 2 TAB PO DAILY, (Reported) Simvastatin (Simvastatin) 10 Mg Tablet, 1 TAB PO QHS, (Reported) Scheduled PRN Albuterol Sulfate (Albuterol Sulfate Hfa) 8.5 Gm Hfa.aer.ad, 1 PUFF INH PRN PRN for SHORTNESS OF BREATH, (Reported) Azelastine HCl (Azelastine HCl) 0.1% [place].pump, 1 SPRAY INH PRN PRN for CONGESTION, (Reported) Benzonatate (Benzonatate) 200 Mg Capsule, 200 MG PO TID PRN for COUGH, #30 Hydrocodone/Acetaminophen (Hydrocodone-Acetamin 5-325 mg) 1 Each Tablet, 1 TAB PO PRN PRN for PAIN, (Reported) Hydrocodone/Acetaminophen (Hydrocodone-Acetamin 5-325 mg) 1 Each Tablet, 1 TAB PO Q6H PRN for PAIN, #12 Ondansetron (Ondansetron Odt) 4 Mg Tab.rapdis, 1 TAB PO Q6-8HP PRN for nausea/vomiting for 4 Days, #16 Miscellaneous Medications [marijuana oil ] , 9.5, (Reported) RIENIER BLACK MD Jul 25, 2021 16:08
[~2021-07-26] VITALS: Ht 162.6 cm; Wt 87.7 kg
[~2021-07-26 09:40] MED LIST changes: +ACETAMINOPHEN TAB 650MG DOSE (2X325MG) PO PRN; +ALBUTEROL 90 MCG/ACT 8GM HFA INHALER INH PRN; +ALBUTEROL SULFATE 2.5 MG/0.5 ML INH NEB SOLN INH PRN; +BENZ200C70 PO; +CASIRIVIMAB/IMDEVIMAB 1,200 MG in NS 250 ML IV ONE; +EPINEPHrine INJ 1 MG/ML 1ML AMP IM PRN; +NS 1,000 ML IV SCH; +ONDA4TAB6 PO; +diphenhydrAMINE 50MG/ML VIAL (J1200) IV PRN; +methylPREDNISolone 125MG 2ML VIAL IV PRN
[2021-07-26 10:26] VITALS: BP 86/53
[2021-07-26 10:50] VITALS: BP 72/46
[2021-07-26 11:15] VITALS: BP_SYST 74; BP_SYST 76; BP_DIAS 44
[2021-07-26] MEDS ORDERED: ROSU10TA6 PO (13:14)
[2021-07-26] MEDS ORDERED: OXYC10TA3 PO (13:14)
[2021-07-26] MEDS ORDERED: TRAZ1TAB10 PO (13:14)
== END 2021-07-26 11:25 | disposition other institution (70) ==
LOC: M OPCLI4PR 09:40 → M MS4PR 09:42 → M OPCLI4PR 11:25
PROVIDERS: ATTEND Internal Medicine
DX: Z53.9 Procedure and treatment not carried out, unspecified reason (principal)

== ENCOUNTER 2021-07-26 11:30 | Inpatient (IN) | payer MEDICARE, MEDICAID ==
[~2021-07-26] VITALS: Ht 162.6 cm; Wt 83.3 kg
[~2021-07-26 11:30] MED LIST changes: -ACETAMINOPHEN TAB 650MG DOSE (2X325MG) PO PRN; -ALBUTEROL 90 MCG/ACT 8GM HFA INHALER INH PRN; -ALBUTEROL SULFATE 2.5 MG/0.5 ML INH NEB SOLN INH PRN; -CASIRIVIMAB/IMDEVIMAB 1,200 MG in NS 250 ML IV ONE; -EPINEPHrine INJ 1 MG/ML 1ML AMP IM PRN; -NS 1,000 ML IV SCH; -diphenhydrAMINE 50MG/ML VIAL (J1200) IV PRN; -methylPREDNISolone 125MG 2ML VIAL IV PRN
--- NOTE | 2021-07-26 12:14 | REP ---
INDICATION: Coronavirus workup COMPARISON: 07/25/2021, 11/09/2020 TECHNIQUE: Portable AP view of the chest FINDINGS: Chronic changes are appreciated with suspected superimposed patchy infiltrates consistent with COVID-19 pulmonary disease. No effusion or pneumothorax. Mediastinum and cardiac silhouette are stable. IMPRESSION: Stable chronic changes with suspected superimposed infiltrates consistent with COVID-19 pulmonary disease. <Electronically signed by Sergio Chatman > 07/26/21 [id number]
[2021-07-26 12:28] LABS: BASO % 0.5 % (0.0-1.0); HEMATOCRIT 42.8 % (36.0-47.0); HEMOGLOBIN 14.3 g/dl (12.0-15.5); LYMPH # 0.3 10^3/uL (1.5-5.0); LYMPH % 4.1 % (24.0-44.0); MEAN CORPUSCULAR HEMOGLOBIN 28.4 pg (27.0-33.0); MEAN CORPUSCULAR HGB CONC 33.4 g/dl (32.0-36.5); MEAN CORPUSCULAR VOLUME 84.9 fl (80.0-96.0); MONO # 0.4 10^3/uL (0.0-0.8); MONO % 5.8 % (2.0-8.0); NEUTROPHILS # 5.7 10^3/uL (1.5-8.5); NEUTROPHILS % 88.3 % (36.0-66.0); PLATELET COUNT, AUTOMATED 141 10^3/uL (150-450); RED BLOOD COUNT 5.04 10^6/uL (4.00-5.40); WHITE BLOOD COUNT 6.4 10^3/uL (4.0-10.0)
[2021-07-26 12:38] LABS: INR 0.96; PROTHROMBIN TIME 13.2 SECONDS (12.7-14.5)
[2021-07-26 12:39] LABS: PARTIAL THROMBOPLASTIN TIME 33.4 SECONDS (25.9-37.0)
[2021-07-26 13:03] LABS: D-DIMER QUANT 2539.83 ng/ml (<500)
[2021-07-26 13:05] LABS: ALBUMIN 2.8 GM/DL (3.2-5.2); ALT/SGPT 23 U/L (12-78); BILIRUBIN,TOTAL 0.5 MG/DL (0.2-1.0); BLOOD UREA NITROGEN 30 MG/DL (7-18); C REACTIVE PROTEIN QUANTITATIV 8.45 MG/DL (0.00-0.30); CALCIUM LEVEL 8.6 MG/DL (8.8-10.2); CARBON DIOXIDE LEVEL 23 MEQ/L (21-32); CHLORIDE LEVEL 99 MEQ/L (98-107); CREATININE FOR GFR 0.82 MG/DL (0.55-1.30); FERRITIN 1881 NG/ML (8-252); GLOMERULAR FILTRATION RATE > 60.0 (>45); GLUCOSE, FASTING 96 MG/DL (70-100); LDH LACTATE DEHYDROGENASE 610 U/L (84-246); MAGNESIUM LEVEL 1.9 MG/DL (1.8-2.4); POTASSIUM SERUM 3.8 MEQ/L (3.5-5.1); SODIUM LEVEL 131 MEQ/L (136-145); TOTAL PROTEIN 6.1 GM/DL (6.4-8.2)
[2021-07-26] MEDS ORDERED: ROSU10TA6 PO (13:14)
[2021-07-26] MEDS ORDERED: OXYC10TA3 PO (13:14)
[2021-07-26] MEDS ORDERED: TRAZ1TAB10 PO (13:14)
[2021-07-26] MEDS ORDERED: HOME MED LIST COMPLETE! XX SCH (13:20)
[2021-07-26] MEDS ORDERED: NS 1,000 ML IV ONE (15:00)
[2021-07-26] MEDS ORDERED: ONDANSETRON 4MG/2ML VIAL IV PRN (15:20)
--- NOTE | 2021-07-26 15:23 | HPEPDOC ---
General Date of Admission Jul 26, 2021 at 14:18 Date of Service: Jul 26, 2021 Chief Complaint The patient is a 66-year-old female admitted with a reason for visit of Covid- 19, Pulmonary Fibrosis. History of Present Illness 66 yo W with a history of rheumatoid arthritis, pulmonary fibrosis w/ chronic hypoxemic respiratory failure on baseline 2L NC, who follows with Dr. Liriano, obesity, HTN, HLD, chronic back pain who developed body aches, congestion, loose stools and fever 7 days ago and presented to the ED on 07/25/21 for persisting symptoms and was found to have covid-19 infection. She was scheduled to get monoclonal antibody infusion and go Home. However due to non availability of staff to do the infusion she was instructed to come back on 07/26/21 for the infusion. On arrival to the infusion unit she was noted to be hypoxic to 76% in room air. She did not have her 2 liters on. She was needing 4 litrs to get her oxygen up to 92%. She was also noted to be hypotensive to 86/ 53 and repeat was 76/44. So she was sent to the ED for evaluation and admission. She complained of feeling extremely weak and tired. She also continues to have green watery diarrhea without any abdominal pains about 3 to 4 times a day. In ED she was needing 3 liters of oxygen. She complains of poor appetite and nausea and unable to take much po. She was admitted for COVID pneumonia with hypoxia, diarrhea and dehydration and hypotension. Home Medications Scheduled Folic Acid (Folic Acid) 1 Mg Tablet, 1 MG PO DAILY, (Reported) Leflunomide (Leflunomide) 20 Mg Tablet, 20 MG PO DAILY, (Reported) Lisinopril/Hydrochlorothiazide (Lisinopril-Hctz 10-12.5 mg Tab) 1 Each Tablet, 1 TAB PO DAILY, (Reported) Rosuvastatin Calcium (Rosuvastatin Calcium) 10 Mg Tablet, 10 MG PO DAILY, (Reported) Simvastatin (Simvastatin) 10 Mg Tablet, 10 MG PO QHS, (Reported) Trazodone HCl (Trazodone HCl) 50 Mg Tablet, 50 MG PO QHS, (Reported) Scheduled PRN Albuterol Sulfate (Albuterol Sulfate Hfa) 8.5 Gm Hfa.aer.ad, 1 PUFF INH PRN PRN for SHORTNESS OF BREATH, (Reported) Azelastine HCl (Azelastine HCl) 0.1% [place].pump, 1 SPRAY INH PRN PRN for SHELLEY ESTION, (Reported) Ondansetron (Ondansetron Odt) 4 Mg Tab.rapdis, 1 TAB PO Q6-8HP PRN for nausea/vomiting Oxycodone HCl/Acetaminophen (Oxycodone-Acetaminophen 10-325) 1 Each Tablet, 1 TAB PO Q6H PRN for PAIN LEVEL 5-10, (Reported) Allergies Coded Allergies: codeine (Verified Allergy, Unknown, respiratory issues, 03/27/20) Past Medical History Medical History RA, Pulmonary fibrosis, Chronic hypoxemic respiratory failure on 2L at baseline HTN HLD Chronic back pain hypothyroidism Surgical History L breast biopsy Back surgery Cholecystectomy Family History Father: Had alcohol use disorder and from a brain hemorrhage Mother: had a history of COPD, had a PPM, HTN and cardiomegaly A-FIB/CHADSVASC A-FIB History Current/History of A-Fib/PAF?: No Review of Systems Constitutional: Reports: Weakness, Fatigue Eyes: Denies: Pain, Vision change ENT: Denies: Head Aches, Ear Pain, Dysphagia Skin: Denies: Rash, Lesions, Breakdown Pulmonary: Denies: Dyspnea, Cough Cardiovascular: Reports: Lt Headedness; Denies: Chest Pain, Palpitations, Orthopnea, Paroxysmal Noc. Dyspnea Gastrointestinal: Reports: Nausea, Diarrhea Genitourinary: Denies: Dysuria, Frequency, Incontinence Hematologic: Denies: Bruising, Bleeding Excessively Musculoskeletal: Reports: Back Pain, Joint Pain, Muscle Pain; Denies: Spasms Physical Examination General Exam: Positive: Alert, Cooperative, No Acute Distress Eye Exam: Positive: PERRLA, Conjunctiva & lids normal, EOMI; Negative: Sclera icteric ENT Exam: Positive: Atraumatic, Mucous membr. moist/pink, Pharynx Normal Neck Exam: Positive: Supple; Negative: JVD, thyromegaly Chest Exam: Positive: Diminished, Other (Bilateral diffuse crackles); Negative: Rales, Rhonchi, Wheezing Heart Exam: Positive: Rate Normal, Regular Rhythm, Normal S1, Normal S2; Negative: Murmurs, Rubs Abdomen Exam: Positive: Normal bowel sounds, Soft; Negative: Tenderness Extremity Exam: Negative: Clubbing, Cyanosis, Edema Skin Exam: Positive: Nl turgor and temperature; Negative: Breakdown, Lesion Psych Exam: Positive: Memory Intact, Oriented x 3 Vital Signs Vital Signs Date Time Temp Pulse Resp B/P (MAP) Pulse Ox O2 Delivery O2 Flow Rate FiO2 07/26/21 11:44 98.9 79 18 114/63 (80) 94 Nasal Cannula 4.0 Laboratory Data Labs 24H Laboratory Tests 2 07/26/21 11:50: Lactic Acid Level 1.5 07/26/21 11:51: Immature Granulocyte % (Auto) 1.3, Neutrophils (%) (Auto) 88.3H, Lymphocytes (%) (Auto) 4.1L, Monocytes (%) (Auto) 5.8, Eosinophils (%) (Auto) 0.0, Basophils (%) (Auto) 0.5, Neutrophils # (Auto) 5.7, Lymphocytes # (Auto) 0.3L, Monocytes # (Auto) 0.4, Eosinophils # (Auto) 0.0, Basophils # (Auto) 0.0, Nucleated Red Blood Cells % (auto) 0.0, Prothrombin Time 13.2, Prothromb Time International Ratio 0.96, Activated Partial Thromboplast Time 33.4, Fibrinogen 645H, D-Dimer, Quantitative 2539.83H, Anion Gap 9, Glomerular Filtration Rate > 60.0, Calcium L evel 8.6L, Magnesium Level 1.9, Ferritin 1881H, Total Bilirubin 0.5, Aspartate Amino Transf (AST/SGOT) 42H, Alanine Aminotransferase (ALT/SGPT) 23, Alkaline Phosphatase 56, Lactate Dehydrogenase 610H, C-Reactive Protein, Quantitative 8.45H, Total Protein 6.1L, Albumin 2.8L, Albumin/Globulin Ratio 0.8L, Procalcitonin 0.07 07/26/21 12:02: POC Troponin I (Misc) 0.06 CBC/BMP Laboratory Tests 07/26/21 11:51 Microbiology Microbiology 07/26/21 Blood Culture, Received Pending 07/26/21 Blood Culture, Received Pending Assessment/Plan 66 yo W with a history of rheumatoid arthritis, pulmonary fibrosis w/ chronic hypoxemic respiratory failure on baseline 2L NC, who follows with Dr. Liriano, obesity, HTN, HLD, chronic back pain who developed body aches, congestion, loose stools and fever 7 days ago and presented to the ED on 07/25/21 for persisting symptoms and was found to have covid-19 infection. She was scheduled to get monoclonal antibody infusion and go Home. However due to non availability of staff to do the infusion she was instructed to come back on 07/26/21 for the infusion. On arrival to the infusion unit she was noted to be hypoxic to 76% in room air. She did not have her 2 liters on. She was needing 4 litrs to get her oxygen up to 92%. She was also noted to be hypotensive to 86/ 53 and repeat was 76/44. So she was sent to the ED for evaluation and admission. She complained of feeling extremely weak and tired. She also continues to have green watery diarrhea without any abdominal pains about 3 to 4 times a day. In ED she was needing 3 liters of oxygen. She complains of poor appetite and nausea and unable to take much po. She was admitted for COVID pneumonia with hypoxia, diarrhea and dehydration and hypotension. Diarrhea, dehydration and hypotension This is due to Covid infection leading to diarrhea with the poor oral intake and continuing to take oral antihypertensive medications. We will stop lisinopril hydrochlorothiazide Give 1 L IV bolus Hyponatremia Likely due to GI losses on the background of being on hydrochlorothiazide Will give normal saline bolus Covid infection with mild hypoxia Patient has chronic hypoxic respiratory failure and uses 2 L at baseline at present needing 4 L We will put the patient on dexamethasone and remdesivir. Aspirin Incentive spirometry, awake proning Pulmonary fibrosis with chronic hypoxic respiratory failure At baseline uses 2 L of oxygen Rheumatoid arthritis On leflunomide at home we will continue on discharge Patient is on narcotics for pain control at home will give as needed. Plan / VTE VTE Prophylaxis Ordered?: Yes Mira Acuña MD Jul 26, 2021 15:23
[2021-07-26] MEDS ORDERED: PERCOCET 5MG/325MG TAB PO PRN (15:25)
[2021-07-26] MEDS ORDERED: SODIUM CHLORIDE 0.9% INJ 10 ML SYR IV ONE (16:20)
[2021-07-26] MEDS ORDERED: REMDESIVIR 200 MG in NS 250 ML IV ONE (17:00)
[2021-07-26] MEDS: dexameTHASONE 4 MG/ML 1ML VIAL (J1100 PER 1MG) IV SCH (17:40)
[2021-07-26] MEDS: ASPIRIN 81MG ENTERIC TABLET PO SCH (17:40)
[2021-07-26 18:44] VITALS: BP 108/70
[2021-07-26 18:47] LABS: BILIRUBIN,DIRECT 0.2 MG/DL (0.0-0.2)
[2021-07-26 19:58] VITALS: O2SAT 94
[2021-07-26 20:00] VITALS: O2SAT 93
[2021-07-26 20:15] VITALS: BP 140/64
[2021-07-26] MEDS: traZODone 50 MG TAB PO SCH (20:17)
[2021-07-26] MEDS ORDERED: ACETAMINOPHEN TAB 650MG DOSE (2X325MG) PO PRN (20:55)
[2021-07-26] MEDS ORDERED: AZELASTINE 137MCG NASAL SPY 30 ML (ASTELIN) PRN (20:55)
[2021-07-26] MEDS ORDERED: ALBUTEROL 90 MCG/ACT 8GM HFA INHALER INH PRN (20:55)
[2021-07-26] MEDS ORDERED: PANTOPRAZOLE 40MG TAB (PROTONIX) PO SCH (21:00)
[2021-07-26] MEDS: COMBIVENT RESPIMAT 100-20MCG INHALER 4GM INH SCH (21:19)
[2021-07-26 21:31] LABS: ABG O2 SATURATION 92.3 % (95.0-99.0); ABG PARTIAL PRESSURE CO2 33.6 mmHg (35.0-45.0); ABG PARTIAL PRESSURE O2 69.2 mmHg (75.0-100.0); ABG STANDARD HCO3 21.1 MEQ/L (22.0-26.0); ABG TOTAL CO2 21.1 MEQ/L (23.0-31.0); ABG pH (ARTERIAL) 7.393 UNITS (7.350-7.450)
[2021-07-27] VITALS (10 sets, daily range): BP systolic 105–124; BP diastolic 55–73; O2SAT 70–95
[2021-07-27] MEDS: COMBIVENT RESPIMAT 100-20MCG INHALER 4GM INH SCH ×5 (02:13→23:20)
[2021-07-27 08:02] LABS: BASO % 0.2 % (0.0-1.0); HEMATOCRIT 41.5 % (36.0-47.0); HEMOGLOBIN 13.7 g/dl (12.0-15.5); LYMPH # 0.3 10^3/uL (1.5-5.0); MEAN CORPUSCULAR HEMOGLOBIN 28.4 pg (27.0-33.0); MEAN CORPUSCULAR VOLUME 85.9 fl (80.0-96.0); MONO # 0.2 10^3/uL (0.0-0.8); MONO % 5.2 % (2.0-8.0); NEUTROPHILS # 3.8 10^3/uL (1.5-8.5); NEUTROPHILS % 86.3 % (36.0-66.0); PLATELET COUNT, AUTOMATED 130 10^3/uL (150-450); RED BLOOD COUNT 4.83 10^6/uL (4.00-5.40); WHITE BLOOD COUNT 4.5 10^3/uL (4.0-10.0)
[2021-07-27 08:15] LABS: BLOOD UREA NITROGEN 26 MG/DL (7-18); CALCIUM LEVEL 8.4 MG/DL (8.8-10.2); CARBON DIOXIDE LEVEL 22 MEQ/L (21-32); CHLORIDE LEVEL 104 MEQ/L (98-107); CREATININE FOR GFR 0.74 MG/DL (0.55-1.30); GLOMERULAR FILTRATION RATE > 60.0 (>45); GLUCOSE, FASTING 77 MG/DL (70-100); POTASSIUM SERUM 3.6 MEQ/L (3.5-5.1); SODIUM LEVEL 134 MEQ/L (136-145)
[2021-07-27] MEDS ORDERED: ENOXAPARIN 40MG/0.4ML SYRINGE (J1650 PER 10MG) SC SCH (09:00)
[2021-07-27] MEDS: FOLIC ACID 1 MG TAB PO SCH (10:06)
[2021-07-27] MEDS: dexameTHASONE 4 MG/ML 1ML VIAL (J1100 PER 1MG) IV SCH (10:06)
[2021-07-27] MEDS: ASPIRIN 81MG ENTERIC TABLET PO SCH (10:06)
[2021-07-27] MEDS: ENOXAPARIN 40MG/0.4ML SYRINGE (J1650 PER 10MG) SC SCH ×2 (10:23→21:00)
[2021-07-27 11:20] LABS: ALBUMIN 2.4 GM/DL (3.2-5.2); ALT/SGPT 19 U/L (12-78); BILIRUBIN,DIRECT 0.1 MG/DL (0.0-0.2); BILIRUBIN,TOTAL 0.4 MG/DL (0.2-1.0); TOTAL PROTEIN 6.4 GM/DL (6.4-8.2)
--- NOTE | 2021-07-27 15:19 | IPNPDOC ---
Subjective Date Seen The patient was seen on 07/27/21. Subjective Chief Complaint/HPI Patient was febrile overnight 201.5. Continues to have about 2-3 episodes of loose motion. Patient says feels about the same as yesterday. Requiring more oxygen today about 7 to 8 L at this time Objective Physical Examination General Exam: Positive: Alert, Cooperative, No Acute Distress Eye Exam: Positive: PERRLA, Conjunctiva & lids normal, EOMI; Negative: Sclera icteric ENT Exam: Positive: Atraumatic, Mucous membr. moist/pink, Pharynx Normal Neck Exam: Positive: Supple; Negative: JVD, thyromegaly Chest Exam: Positive: Diminished, Other (Bilateral diffuse crackles); Negative: Rales, Rhonchi, Wheezing Heart Exam: Positive: Rate Normal, Regular Rhythm, Normal S1, Normal S2; Negative: Murmurs, Rubs Abdomen Exam: Positive: Normal bowel sounds, Soft; Negative: Tenderness Extremity Exam: Negative: Clubbing, Cyanosis, Edema Skin Exam: Positive: Nl turgor and temperature; Negative: Breakdown, Lesion Psych Exam: Positive: Memory Intact, Oriented x 3 Assessment /Plan Assessment 66 yo W with a history of rheumatoid arthritis, pulmonary fibrosis w/ chronic hypoxemic respiratory failure on baseline 2L NC, who follows with Dr. Liriano, obesity, HTN, HLD, chronic back pain who developed body aches, congestion, loose stools and fever 7 days ago and presented to the ED on 07/25/21 for persisting symptoms and was found to have covid-19 infection. She was scheduled to get monoclonal antibody infusion and go Home. However due to non availability of staff to do the infusion she was instructed to come back on 07/26/21 for the infusion. On arrival to the infusion unit she was noted to be hypoxic to 76% in room air. She did not have her 2 liters on. She was needing 4 litrs to get her oxygen up to 92%. She was also noted to be hypotensive to 86/ 53 and repeat was 76/44. So she was sent to the ED for evaluation and admission. She complained of feeling extremely weak and tired. She also continues to have green watery diarrhea without any abdominal pains about 3 to 4 times a day. In ED she was needing 3 liters of oxygen. She complains of poor appetite and nausea and unable to take much po. She was admitted for COVID pneumonia with hypoxia, diarrhea and dehydration and hypotension. Covid pneumonia with acute on chronic hypoxic respiratory failure Patient has chronic hypoxic respiratory failure and uses 2 L at baseline at present needing 8 L of oxygen Continue on dexamethasone and remdesivir. Aspirin, Lovenox Incentive spirometry, awake proning Covid labs ordered Diarrhea, dehydration and hypotension This is due to Covid infection leading to diarrhea with the poor oral intake and continuing to take oral antihypertensive medications. Hypotension has improved. stopped lisinopril hydrochlorothiazide Hyponatremia Due to GI loss, poor oral intake and use of diuretic Improved Pulmonary fibrosis with chronic hypoxic respiratory failure At baseline uses 2 L of oxygen Rheumatoid arthritis On leflunomide at home we will continue on discharge Patient is on narcotics for pain control at home will give as needed. Plan/VTE VTE Prophylaxis Ordered?: Yes VS, I&O, 24H, Fishbone Vital Signs/I&O Vital Signs Date Time Temp Pulse Resp B/P (MAP) Pulse Ox O2 Delivery O2 Flow Rate FiO2 07/27/21 05:48 96.5 62 19 105/55 (72) 98 High Flow Cannula 7.0 I&O- Last 24 Hours up to 6 AM 07/27/21 06:00 Intake Total 1530 ml Output Total 200 ml Balance 1330 ml Laboratory Data 24H LABS Laboratory Tests 2 07/26/21 21:31: Blood Gas Bicarbonate Standard 21.1L, Arterial Blood pH 7.393, Arterial Blood Partial Pressure CO2 33.6L, Arterial Blood Partial Pressure O2 69.2L, Arterial Blood Total CO2 21.1L, Arterial Blood HCO3 20.0L, Arterial Blood Base Excess -4. 0L, Arterial Blood Oxygen Saturation 92.3L 07/27/21 06:43: Immature Granulocyte % (Auto) 1.3, Neutrophils (%) (Auto) 86.3H, Lymphocytes (%) (Auto) 7.0L, Monocytes (%) (Auto) 5.2, Eosinophils (%) (Auto) 0.0, Basophils (%) (Auto) 0.2, Neutrophils # (Auto) 3.8, Lymphocytes # (Auto) 0.3L, Monocytes # (Auto) 0.2, Eosinophils # (Auto) 0.0, Basophils # (Auto) 0.0, Nucleated Red Blood Cells % (auto) 0.0, Anion Gap 8, Glomerular Filtration Rate > 60.0, Calcium Level 8.4L, Magnesium Level 2.0, Total Bilirubin 0.4, Direct Bilirubin 0.1, Aspartate Amino Transf (AST/SGOT) 41H, Alanine Aminotransferase (ALT/SGPT) 19, Alkaline Phosphatase 52, Total Protein 6.4, Albumin 2.4L, Albumin/Globulin Ratio 0.6L CBC/BMP Laboratory Tests 07/27/21 06:43 Microbiology Microbiology 07/26/21 Blood Culture - Preliminary, Resulted No growth after 24 hours . All specim... 07/26/21 Blood Culture - Preliminary, Resulted No growth after 24 hours . All specim... Mira Acuña MD Jul 27, 2021 15:19
[2021-07-27] MEDS: REMDESIVIR 100 MG in NS 250 ML IV SCH (15:33)
[2021-07-27] MEDS: SODIUM CHLORIDE 0.9% INJ 10 ML SYR IV SCH (15:34)
--- NOTE | 2021-07-27 17:34 | ECGEPIP ---
[facility] - ED Test Date: 2021-07-26 Pat Name: MARY WILLIS Department: Room: - Gender: Female Congressional Representative: SELENE : 1955 Requested By: Grace Lindo Order Number: [id number] Reading MD: Grace Lindo Measurements Intervals [place] Rate: 74 P: 34 [place]: 134 QRS: -46 QRSD: 88 T: -11 QT: 426 QTc: 472 Interpretive Statements Normal sinus rhythm Left axis deviation Pulmonary disease pattern ST & T wave abnormality, consider anterior ischemia Prolonged QT/decreased rate compared 07/25/21 Electronically Signed on 07-27-2021 17:33:27 EDT by Grace Lindo
[2021-07-27] MEDS: BUDESONIDE 180MCG INHALER (PULMICORT FLEXHALER) INH SCH (20:00)
--- NOTE | 2021-07-27 20:01 | IPNPDOC ---
Text Note Date of Service Significant event NOTE Pt with desat, placed on vapotherm during dayshift with her inc demand. Pt upgraded to PCU status since requiring frequent monitoring. She is desating with any movement to 60s, at rest with max vapo therm 89%, mentating well but tachypneic. Plan for breathing trement, cxr, abg. NRB to overly if needed during this period. Given her pulm fibrosis hx complicated with active covid; Likely will benefit from pulmonary consult. Pend data to transfer to ICU vs adjusting any other treatments. WCTM. VS,Fishbone, I+O VS, Fishbone, I+O Laboratory Tests 07/27/21 06:43 Vital Signs Date Time Temp Pulse Resp B/P (MAP) Pulse Ox O2 Delivery O2 Flow Rate FiO2 07/27/21 18:35 91 HVNI-Vapotherm 40.0 100 07/27/21 14:00 97.5 94 22 124/58 (80) I&O- Last 24 Hours up to 6 AM 07/27/21 06:00 Intake Total 1530 ml Output Total 200 ml Balance 1330 ml LOIDA KELSEY NP Jul 27, 2021 20:01
--- NOTE | 2021-07-27 20:31 | REPVR ---
PROCEDURE INFORMATION: Exam: XR Chest Exam date and time: 07/27/2021 8:01 PM Age: 66 years old Clinical indication: Other: Desat; Additional info: Inc o2 demand, desat TECHNIQUE: Imaging protocol: XR of the chest. Views: 1 view. COMPARISON: CR PORTABLE CHEST X-RAY 07/26/2021 11:59 AM FINDINGS: Lungs: Diffuse bilateral airspace filling. Pleural spaces: No pleural effusion. No pneumothorax. Heart/Mediastinum: Cardiomediastinal silhouette appears enlarged but this may be due to apical lordotic positioning. Atherosclerosis is again seen. Bones/joints: Unremarkable. IMPRESSION: Diffuse bilateral pulmonary infiltrates most likely due to diffuse pneumonia or edema. No definite pleural effusions are identified. Electronically signed by: Kate Elliott On 07/27/2021 20:31:36 PM
[2021-07-27 20:49] LABS: ABG BASE EXCESS -2.6 (-2.0-2.0); ABG HCO3 20.3 MEQ/L (22.0-26.0); ABG PARTIAL PRESSURE CO2 30.3 mmHg (35.0-45.0); ABG STANDARD HCO3 22.3 MEQ/L (22.0-26.0); ABG TOTAL CO2 21.2 MEQ/L (23.0-31.0); ABG pH (ARTERIAL) 7.443 UNITS (7.350-7.450)
[2021-07-27] MEDS: PANTOPRAZOLE 40MG TAB (PROTONIX) PO SCH (21:00)
[2021-07-27] MEDS: guaiFENesin ER 600 MG TAB PO SCH (21:00)
[2021-07-27] MEDS: dexameTHASONE 20MG/5ML VIAL (J1100 PER 1MG) IV SCH (21:00)
[2021-07-27] MEDS: traZODone 50 MG TAB PO SCH (21:00)
[2021-07-28] VITALS (15 sets, daily range): BP systolic 86–147; BP diastolic 50–96; O2SAT 88–93
[2021-07-28] MEDS ORDERED: DIGOXIN INJ 0.5 MG/2 ML AMP (J1160) IV ONE (02:05)
[2021-07-28] MEDS ORDERED: ENOXAPARIN 40MG/0.4ML SYRINGE (J1650 PER 10MG) SC ONE (02:05)
[2021-07-28] MEDS ORDERED: DIGOXIN INJ 0.5 MG/2 ML AMP (J1160) As Ordered ONE (02:06)
[2021-07-28 02:07] LABS: BASO % 0.3 % (0.0-1.0); EOS # 0.1 10^3/uL (0.0-0.5); EOS % 0.4 % (0.0-3.0); HEMATOCRIT 45.6 % (36.0-47.0); HEMOGLOBIN 15.4 g/dl (12.0-15.5); LYMPH # 0.4 10^3/uL (1.5-5.0); LYMPH % 3.1 % (24.0-44.0); MEAN CORPUSCULAR HEMOGLOBIN 28.3 pg (27.0-33.0); MEAN CORPUSCULAR HGB CONC 33.8 g/dl (32.0-36.5); MEAN CORPUSCULAR VOLUME 83.7 fl (80.0-96.0); MONO # 0.5 10^3/uL (0.0-0.8); MONO % 3.8 % (2.0-8.0); NEUTROPHILS % 91.2 % (36.0-66.0); PLATELET COUNT, AUTOMATED 196 10^3/uL (150-450); RED BLOOD COUNT 5.45 10^6/uL (4.00-5.40); WHITE BLOOD COUNT 12.1 10^3/uL (4.0-10.0)
--- NOTE | 2021-07-28 02:10 | IPNPDOC ---
Text Note Date of Service The patient was seen on 07/28/21. NOTE TIME OF SERVICE 200AM I was called to the patient's bedside by her RN bc the patient was hypoxemic in the mid 70s despite max dose of vapotherm and tachycardic PE: alert but listless / HR 158 // RR 39 // O2 75% on Max vapotherm 40L // BP 96/56 #Hypoxemia 2/2 COVID Plan:repeat ABG / BIPAP / consult #Rapid / New onset Afib EKG reviewed CHADSVASc Score is 3 Plan: switch to treatment dose lovenox / IV digoxin / f/u morning labs including electrolytes, trop LATE ENTRY 2:19AM The patient's O2 sats are 91 despite being on BIPAP for 15 min. We are waiting for to call back LATE ENTRY 309AM #Hypokalemia Plan: KCl IV #Elevated trop 2/2 tachycardia induced vs Viral Cardiomyopathy Per d/w the patient's RN the pt didn't endorse chest pain Plan: trend trops / f/u Echo VS,Fishbone, I+O VS, Fishbone, I+O Laboratory Tests 07/27/21 06:43 Vital Signs Date Time Temp Pulse Resp B/P (MAP) Pulse Ox O2 Delivery O2 Flow Rate FiO2 07/27/21 23:21 87 HVNI-Vapotherm 40.0 100 07/27/21 23:00 97.6 88 29 118/73 (88) I&O- Last 24 Hours up to 6 AM 07/28/21 05:59 Intake Total 1260 ml Output Total 0 ml Balance 1260 ml FROILAN RAMIREZ MD Jul 28, 2021 02:10
[2021-07-28 02:30] LABS: ABG BASE EXCESS -4.8 (-2.0-2.0); ABG HCO3 19.9 MEQ/L (22.0-26.0); ABG O2 SATURATION 91.4 % (95.0-99.0); ABG PARTIAL PRESSURE CO2 36.2 mmHg (35.0-45.0); ABG PARTIAL PRESSURE O2 67.3 mmHg (75.0-100.0); ABG STANDARD HCO3 20.4 MEQ/L (22.0-26.0); ABG pH (ARTERIAL) 7.358 UNITS (7.350-7.450)
[2021-07-28 02:35] LABS: INR 1.19; PROTHROMBIN TIME 15.5 SECONDS (12.7-14.5)
[2021-07-28 02:36] LABS: PARTIAL THROMBOPLASTIN TIME 41.5 SECONDS (25.9-37.0)
[2021-07-28 02:57] LABS: BLOOD UREA NITROGEN 24 MG/DL (7-18); CALCIUM LEVEL 8.1 MG/DL (8.8-10.2); CARBON DIOXIDE LEVEL 21 MEQ/L (21-32); CHLORIDE LEVEL 105 MEQ/L (98-107); CPK CREATINE PHOSPHOKINASE 1189 U/L (26-192); CREATININE FOR GFR 0.79 MG/DL (0.55-1.30); FERRITIN 4668 NG/ML (8-252); GLOMERULAR FILTRATION RATE > 60.0 (>45); GLUCOSE, FASTING 121 MG/DL (70-100); MAGNESIUM LEVEL 1.8 MG/DL (1.8-2.4); NT-PRO BNP 6686 PG/ML (<125); PHOSPHORUS LEVEL 2.6 MG/DL (2.5-4.9); POTASSIUM SERUM 3.4 MEQ/L (3.5-5.1); SODIUM LEVEL 137 MEQ/L (136-145); THYROID STIMULATING HORMONE 0.593 uIU/ML (0.358-3.740); TROPONIN I 1.27 NG/ML (< 0.10)
[2021-07-28] MEDS ORDERED: KCL 10MEQ/100ML SWI (KRUN) 10 MEQ in IV 1 EA IV ONE (03:10)
[2021-07-28] MEDS: COMBIVENT RESPIMAT 100-20MCG INHALER 4GM INH SCH ×6 (03:16→23:14)
[2021-07-28 04:11] LABS: LDH LACTATE DEHYDROGENASE 1399 U/L (84-246)
[2021-07-28 07:01] LABS: BASO % 0.2 % (0.0-1.0); HEMATOCRIT 46.8 % (36.0-47.0); HEMOGLOBIN 15.5 g/dl (12.0-15.5); LYMPH # 0.5 10^3/uL (1.5-5.0); LYMPH % 3.7 % (24.0-44.0); MEAN CORPUSCULAR HGB CONC 33.1 g/dl (32.0-36.5); MEAN CORPUSCULAR VOLUME 84.5 fl (80.0-96.0); MONO # 0.5 10^3/uL (0.0-0.8); MONO % 3.2 % (2.0-8.0); NEUTROPHILS # 12.7 10^3/uL (1.5-8.5); NEUTROPHILS % 91.3 % (36.0-66.0); PLATELET COUNT, AUTOMATED 187 10^3/uL (150-450); RED BLOOD COUNT 5.54 10^6/uL (4.00-5.40); WHITE BLOOD COUNT 13.9 10^3/uL (4.0-10.0)
[2021-07-28 07:10] LABS: INR 1.21; PROTHROMBIN TIME 15.7 SECONDS (12.7-14.5)
[2021-07-28 07:11] LABS: PARTIAL THROMBOPLASTIN TIME 39.9 SECONDS (25.9-37.0)
[2021-07-28 07:30] LABS: ALBUMIN 2.4 GM/DL (3.2-5.2); ALT/SGPT 22 U/L (12-78); BILIRUBIN,DIRECT < 0.1 MG/DL (0.0-0.2); BILIRUBIN,TOTAL 0.5 MG/DL (0.2-1.0); BLOOD UREA NITROGEN 28 MG/DL (7-18); CALCIUM LEVEL 8.1 MG/DL (8.8-10.2); CARBON DIOXIDE LEVEL 22 MEQ/L (21-32); CHLORIDE LEVEL 106 MEQ/L (98-107); CPK CREATINE PHOSPHOKINASE 1767 U/L (26-192); CREATININE FOR GFR 0.85 MG/DL (0.55-1.30); FERRITIN 5154 NG/ML (8-252); GLOMERULAR FILTRATION RATE > 60.0 (>45); GLUCOSE, FASTING 125 MG/DL (70-100); MAGNESIUM LEVEL 2.1 MG/DL (1.8-2.4); NT-PRO BNP 9319 PG/ML (<125); POTASSIUM SERUM 4.6 MEQ/L (3.5-5.1); SODIUM LEVEL 136 MEQ/L (136-145); TOTAL PROTEIN 6.2 GM/DL (6.4-8.2); TROPONIN I 0.81 NG/ML (< 0.10)
[2021-07-28] MEDS: BUDESONIDE 180MCG INHALER (PULMICORT FLEXHALER) INH SCH ×2 (08:00→19:25)
[2021-07-28] MEDS: dexameTHASONE 20MG/5ML VIAL (J1100 PER 1MG) IV SCH ×2 (08:50→20:01)
[2021-07-28] MEDS: ENOXAPARIN 80MG/0.8ML SYRINGE (J1650 PER 10MG) SC SCH ×2 (08:50→20:01)
[2021-07-28] MEDS: ASPIRIN 81MG ENTERIC TABLET PO SCH (08:50)
[2021-07-28] MEDS: PANTOPRAZOLE 40MG TAB (PROTONIX) PO SCH ×2 (08:50→20:02)
[2021-07-28] MEDS: guaiFENesin ER 600 MG TAB PO SCH ×2 (08:50→20:02)
[2021-07-28] MEDS: FOLIC ACID 1 MG TAB PO SCH (08:50)
[2021-07-28 09:02] LABS: LDH LACTATE DEHYDROGENASE 1756 U/L (84-246)
[2021-07-28] MEDS ORDERED: FUROSEMIDE 40MG/4ML VIAL (J1940) IV ONE (09:30)
--- NOTE | 2021-07-28 10:32 | CR.PDOC ---
General Date of Consultation: Jul 28, 2021 Consultation REASON FOR CRITICAL CARE CONSULTATION/KATHE COMPLAINT: Respiratory failure /Covid pneumonia HISTORY OF PRESENT ILLNESS: 66-year-old female with a history of rheumatoid arthritis on rituximab and chronic prednisone 4 mg daily, and leflunomide and also history of chronic hypoxic respiratory failure on 2 L nasal cannula oxygen at baseline secondary to pulmonary fibrosis who follows with Dr. Liriano, obesity presenting to the hospital for chief complaint of shortness of breath. Patient was diagnosed with Covid approximately 1 week ago and was having URI symptoms at that time. She p rogressively started to have worsening dyspnea on exertion. She was admitted to the [facility] Covid floor for hypoxic respiratory failure secondary to Covid pneumonia. Her oxygen requirements steadily increased where she had to be transferred to the ICU for NIV. Patient seen and examined at bedside. There were no overnight events. She is afebrile last 24 hours. Patient is currently on BiPAP 16/8 with FiO2 100%. She is tachypneic and breathing in the 40s. Her pulse ox is in the low 90s. She has to speak in 2-3 word sentences due to dyspnea. PAST MEDICAL/SURGICAL HISTORY: Rheumatoid arthritis, pulmonary fibrosis, chronic hypoxic respiratory failure, hypertension, hypothyroid. Left breast biopsy, back surgery, cholecystectomy. FAMILY HISTORY: Father had alcohol use disorder and from a brain bleed. Mother had COPD, pacemaker and hypertension. SOCIAL HISTORY: Former smoker quit 7 years ago, smoked 1 pack/day for 40 years. No alcohol use no illicit drug use. ALLERGIES: Please see below. HOME MEDICATIONS: Please see below. REVIEW OF SYSTEMS: CONSTITUTIONAL: Denies fever, chills, night sweats, weight loss EYES: No blurring of vision or redness. ENT: No sore throat. No epistaxis. No tinnitus. CARDIOVASCULAR: No chest pain. No palpitations. RESPIRATORY: See HPI GASTROINTESTINAL: No nausea, vomiting, diarrhea present GENITOURINARY: No frequency, urgency, nocturia. No hematuria or dysuria. MUSCULOSKELETAL: No arthralgias or myalgias. INTEGUMENTARY: No rash or swelling NEUROLOGIC: No headache. No numbness or tingling of the extremities. No weakness. PSYCHIATRIC: No confusion or mood changes. ENDOCRINE: No fatigue, no goiter. HEMATOLOGICAL: No bleeding. No petechiae. No bruising. PHYSICAL EXAMINATION: VITAL SIGNS: Please see below. GENERAL APPEARANCE: In respiratory distress. Alert and awake. HEENT: no thyromegaly, trachea midline, PERRLA. normal mucous membranes RESPIRATORY: Bibasilar crackles, good air entry. CARDIOVASCULAR: +s1 s2, no murmurs. Mild tachycardia ABDOMEN: nontender, not distended, +BS EXTREMITIES: no edema or erythema. palpable distal pulses SKIN: no rash, no purpura NEUROLOGICAL: no sensory or motor deficits, orientedx3. LABS/IMAGING: White count 13.9 hemoglobin 15.5 platelet 187 INR 1.21 fibrinogen 643 D-dimer 2539 sodium 136 potassium 4.6 chloride 106 carbon dioxide 22 BUN 28 creatinine 0.85 ferritin 5154 CRP 8.45 Troponin 0.81 from 1.27 BNP 9319 Procalcitonin pending Blood cultures negative x2 Chest x-ray from yesterday diffuse bilateral pulmonary infiltrates most likely due to diffuse pneumonia or edema. No definite pleural effusions. CT chest 11/22/2020 moderate diffuse interstitial fibrotic changes predominant in the periphery. Mild diffuse subpleural honeycombing. Bronchiectasis is noted. CT chest 07/25/2021 no PE. Lung forman demonstrate diffuse chronic age-related interstitial changes with superimposed scattered bilateral opacities consistent with history of COVID-19 pulmonary disease. IMPRESSION: The most critical problems requiring my immediate presence at bedside are: 1. Acute on chronic hypoxic respiratory failure secondary to COVID-19 pneumonia. Elevated inflammatory markers. Doubt superimposed bacterial infection. 2. 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 3. History of RA on rituximab, leflunomide, chronic low-dose prednisone therapy. 4. New onset A. fib RVR on anticoagulation 5. Elevated troponin in the setting of critical illness possibly demand ischemia versus NSTEMI PLAN: INTELLIGENCE ANALYST: No INTELLIGENCE ANALYST depressants. PULM: HOB 30 degrees. Maintain Sp02 88-96 %. Titrate down oxygen as tolerated. Continue with BiPAP alternating with high flow nasal cannula. Continue Decadron at 10 mg twice daily as she was on chronic prednisone therapy at home. Bronchodilators [id number] and as needed. Will have a higher threshold for intubation as she will likely not be easy to extubate given her underlying pulmonary fibrosis. Repeat abg CARDIO: I<O. Maintain MAPs 60-65. Continue rate controlling medications. Would consult cardiology for elevated troponin. Lasix 40 mg IV x1 for worsening respiratory status in the setting of very elevated BNP. GI: GI ppx. P.o. diet as tolerated. monitor LFTs RENAL: monitor lytes. ID: Continue remdesivir. Start baricitinib 4 mg once daily for 14 days or until hospital discharge which ever is first. Follow-up cultures follow-up procalcitonin. ENDO: Monitor FS per routine. Goal range 140-180. HEME: DVT ppx on therapeutic Lovenox LINES/CATHETERS: Peripheral IV Curtis catheter in place. CODE STATUS: Patient is full code for now. She did want the option of cardiac resuscitation without intubation however I spoke to her that this is not a compatible order so she then opted for being full code.. DISPOSITION: Keep in ICU for now.. A total of 65 minutes minutes of critical care time was spent on patient care, not including procedures Thank you for the courtsey of this consult. Please text me on Vocera for any questions or concerns. Vital Signs/I&O Vital Signs Date Time Temp Pulse Resp B/P (MAP) Pulse Ox O2 Delivery O2 Flow Rate FiO2 07/28/21 09:12 100 07/28/21 09:00 100 48 113/69 (84) 95 Non-Rebreather 40.0 07/28/21 08:00 98.7 I&O- Last 24 Hours up to 6 AM 07/28/21 06:00 Intake Total 1380 ml Output Total 0 ml Balance 1380 ml Laboratory Data Labs 24H Laboratory Tests 2 07/27/21 20:18: 07/27/21 20:40: Blood Gas Bicarbonate Standard 22.3, Arterial Blood pH 7.443, Arterial Blood Partial Pressure CO2 30.3L, Arterial Blood Partial Pressure O2 130.0H, Arterial Blood Total CO2 21.2L, Arterial Blood HCO3 20.3L, Arterial Blood Base Excess - 2.6L, Arterial Blood Oxygen Saturation 98.0 07/28/21 01:32: Immature Granulocyte % (Auto) 1.2, Neutrophils (%) (Auto) 91.2H, Lymphocytes (%) (Auto) 3.1L, Monocytes (%) (Auto) 3.8, Eosinophils (%) (Auto) 0.4, Basophils (%) (Auto) 0.3, Neutrophils # (Auto) 11.0H, Lymphocytes # (Auto) 0.4L, Monocytes # (Auto) 0.5, Eosinophils # (Auto) 0.1, Basophils # (Auto) 0.0, Nucleated Red Blood Cells % (auto) 0.0, Prothrombin Time 15.5H, Prothromb Time International Ratio 1.19, Activated Partial Thromboplast Time 41.5H, Fibrinogen 623H, Anion Gap 11, Glomerular Filtration Rate > 60.0, Calcium Level 8.1L, Phosphorus Level 2.6, Magnesium Level 1.8, Ferritin 4668H, Lactate Dehydrogenase 1399H, Total Creatine Kinase 1189#H, Troponin I 1.27H, TH-Ljp-K-Type Natriuretic Peptide 6686H, Thyroid Stimulating Hormone (TSH) 0.593 07/28/21 02:16: Blood Gas Bicarbonate Standard 20.4L, Arterial Blood pH 7.358, Arterial Blood Partial Pressure CO2 36.2, Arterial Blood Partial Pressure O2 67.3L, Arterial Blood Total CO2 21.0L, Arterial Blood HCO3 19.9L, Arterial Blood Base Excess - 4.8L, Arterial Blood Oxygen Saturation 91.4L 07/28/21 06:15: Immature Granulocyte % (Auto) 1.6, Neutrophils (%) (Auto) 91.3H, Lymphocytes (%) (Auto) 3.7L, Monocytes (%) (Auto) 3.2, Eosinophils (%) (Auto) 0.0, Basophils (%) (Auto) 0.2, Neutrophils # (Auto) 12.7H, Lymphocytes # (Auto) 0.5L, Monocytes # (Auto) 0.5, Eosinophils # (Auto) 0.0, Basophils # (Auto) 0.0, Nucleated Red Blood Cells % (auto) 0.0, Prothrombin Time 15.7H, Prothromb Time International Ratio 1.21, Activated Partial Thromboplast Time 39.9H, Fibrinogen 643H, Anion Gap 8, Glomerular Filtration Rate > 60.0, Calcium Level 8.1L, Magnesium Level 2.1, Ferritin 5154H, Total Bilirubin 0.5, Direct Bilirubin < 0.1, Aspartate Amino Transf (AST/SGOT) 118H, Alanine Aminotransferase (ALT/SGPT) 22, Alkaline Phosphatase 78, Lactate Dehydrogenase 1756H, Total Creatine Kinase 1767H, Troponin I 0.81#H, GX-Ual-P-Type Natriuretic Peptide 9319H, Total Protein 6.2L, Albumin 2.4L, Albumin/Globulin Ratio 0.6L CBC/BMP Laboratory Tests 07/28/21 01:32 07/28/21 06:15 Microbiology Microbiology 07/26/21 Blood Culture - Preliminary, Resulted No growth after 24 hours . All specim... 07/26/21 Blood Culture - Preliminary, Resulted No growth after 24 hours . All specim... Allergies Coded Allergies: codeine (Verified Allergy, Unknown, respiratory issues, 03/27/20) Home Medications Scheduled Folic Acid (Folic Acid) 1 Mg Tablet, 1 MG PO DAILY, (Reported) Leflunomide (Leflunomide) 20 Mg Tablet, 20 MG PO DAILY, (Reported) Lisinopril/Hydrochlorothiazide (Lisinopril-Hctz 10-12.5 mg Tab) 1 Each Tablet, 1 TAB PO DAILY, (Reported) Rosuvastatin Calcium (Rosuvastatin Calcium) 10 Mg Tablet, 10 MG PO DAILY, (Reported) Simvastatin (Simvastatin) 10 Mg Tablet, 10 MG PO QHS, (Reported) Trazodone HCl (Trazodone HCl) 50 Mg Tablet, 50 MG PO QHS, (Reported) Scheduled PRN Albuterol Sulfate (Albuterol Sulfate Hfa) 8.5 Gm Hfa.aer.ad, 1 PUFF INH PRN PRN for SHORTNESS OF BREATH, (Reported) Azelastine HCl (Azelastine HCl) 0.1% Hayden.pump, 1 SPRAY INH PRN PRN for CONGESTION, (Reported) Ondansetron (Ondansetron Odt) 4 Mg Tab.rapdis, 1 TAB PO Q6-8HP PRN for nausea/vomiting for 4 Days, #16 Oxycodone HCl/Acetaminophen (Oxycodone-Acetaminophen 10-325) 1 Each Tablet, 1 TAB PO Q6H PRN for PAIN LEVEL 5-10, (Reported) CLINTON JENKINS MD Jul 28, 2021 10:32
[2021-07-28 11:05] LABS: ABG BASE EXCESS -3.8 (-2.0-2.0); ABG FIO2 100; ABG HCO3 19.9 MEQ/L (22.0-26.0); ABG O2 SATURATION 96.6 % (95.0-99.0); ABG PARTIAL PRESSURE CO2 32.6 mmHg (35.0-45.0); ABG PARTIAL PRESSURE O2 92.3 mmHg (75.0-100.0); ABG PEEP 8; ABG STANDARD HCO3 21.3 MEQ/L (22.0-26.0); ABG TOTAL CO2 20.9 MEQ/L (23.0-31.0); ABG pH (ARTERIAL) 7.403 UNITS (7.350-7.450)
[2021-07-28] MEDS: BARICITINIB 2MG TABLET (OLUMIANT) FOR EUA PO SCH (14:00)
[2021-07-28] MEDS: REMDESIVIR 100 MG in NS 250 ML IV SCH (14:31)
--- NOTE | 2021-07-28 15:17 | IPNPDOC ---
Subjective Date Seen The patient was seen on 07/28/21. Subjective Chief Complaint/HPI Patient's oxygen requirement further increased overnight and patient went into A. fib with RVR. Patient was moved to ICU and placed on BiPAP. patient is at 100% for BiPAP with a pressure of 16/6 with oxygen saturations of only about 87 to 88%. patient is alert and oriented x3 however severely dyspneic can only talk about 2-3 words at a time. On placing the patient on Vapotherm 100% 40 L for conversation patient dropped down to 72% -75%. I spoke again about her advanced directives with nurse at bedside. She was very clear and told as definitively that she does not want to be intubated. I explained that we cannot do cardiac resuscitation without intubation. She then said she did not want to be resuscitated. New MOLST form has been done and will update CODE STATUS to DNR/DNI. Objective Physical Examination General Exam: Positive: Alert, Cooperative, Moderate Distress, Other (2-3 word conversational dyspne) Eye Exam: Positive: PERRLA, Conjunctiva & lids normal, EOMI; Negative: Sclera icteric ENT Exam: Positive: Atraumatic, Mucous membr. moist/pink, Pharynx Normal Neck Exam: Positive: Supple; Negative: JVD, thyromegaly Chest Exam: Positive: Diminished, Other (Bilateral diffuse crackles); Negative: Rales, Rhonchi, Wheezing Heart Exam: Positive: Rate Normal, Regular Rhythm, Normal S1, Normal S2; Negative: Murmurs, Rubs Abdomen Exam: Positive: Normal bowel sounds, Soft; Negative: Tenderness Extremity Exam: Negative: Clubbing, Cyanosis, Edema Skin Exam: Positive: Nl turgor and temperature; Negative: Breakdown, Lesion Psych Exam: Positive: Memory Intact, Oriented x 3 Assessment /Plan Assessment 66 yo W with a history of rheumatoid arthritis, pulmonary fibrosis w/ chronic hypoxemic respiratory failure on baseline 2L NC, who follows with Dr. Liriano, obesity, HTN, HLD, chronic back pain who developed body aches, congestion, loose stools and fever 7 days ago and presented to the ED on 07/25/21 for persisting symptoms and was found to have covid-19 infection. She was scheduled to get monoclonal antibody infusion and go Home. However due to non availability of staff to do the infusion she was instructed to come back on 07/26/21 for the infusion. On arrival to the infusion unit she was noted to be hypoxic to 76% in room air. She did not have her 2 liters on. She was needing 4 litrs to get her oxygen up to 92%. She was also noted to be hypotensive to 86/ 53 and repeat was 76/44. So she was sent to the ED for evaluation and admission. She complained of feeling extremely weak and tired. She also continues to have green watery diarrhea without any abdominal pains about 3 to 4 times a day. In ED she was needing 3 liters of oxygen. She complains of poor appetite and nausea and unable to take much po. She was admitted for COVID pneumonia with hypoxia, diarrhea and dehydration and hypotension. Covid pneumonia with acute on chronic hypoxic respiratory failure Continue on dexamethasone and remdesivir. Aspirin, Lovenox Have added Olumiant Incentive spirometry, awake proning Currently on BiPAP Avoid sedating medications. New onset A. fib with RVR Now back to sinus rhythm Needed one dose of digoxin Lovenox has been increased to therapeutic dosage. Diarrhea, dehydration and hypotension This is due to Covid infection leading to diarrhea with the poor oral intake and continuing to take oral antihypertensive medications. Hypotension has improved. stopped lisinopril hydrochlorothiazide Hyponatremia Due to GI loss, poor oral intake and use of diuretic Improved Pulmonary fibrosis with chronic hypoxic respiratory failure At baseline uses 2 L of oxygen Rheumatoid arthritis On leflunomide at home, Remicade Will avoid sedating medications Plan/VTE VTE Prophylaxis Ordered?: Yes VS, I&O, 24H, Fishbone Vital Signs/I&O Vital Signs Date Time Temp Pulse Resp B/P (MAP) Pulse Ox O2 Delivery O2 Flow Rate FiO2 07/28/21 14:00 92 38 94/55 (68) 87 NIPPV (BIPAP/CPAP) 100 07/28/21 12:00 97.9 07/28/21 09:00 I&O- Last 24 Hours up to 6 AM 07/28/21 06:00 Intake Total 1380 ml Output Total 0 ml Balance 1380 ml Laboratory Data 24H LABS Laboratory Tests 2 07/27/21 20:18: 07/27/21 20:40: Blood Gas Bicarbonate Standard 22.3, Arterial Blood pH 7.443, Arterial Blood Partial Pressure CO2 30.3L, Arterial Blood Partial Pressure O2 130.0H, Arterial Blood Total CO2 21.2L, Arterial Blood HCO3 20.3L, Arterial Blood Base Excess - 2.6L, Arterial Blood Oxygen Saturation 98.0 07/28/21 01:32: Immature Granulocyte % (Auto) 1.2, Neutrophils (%) (Auto) 91.2H, Lymphocytes (%) (Auto) 3.1L, Monocytes (%) (Auto) 3.8, Eosinophils (%) (Auto) 0.4, Basophils (%) (Auto) 0.3, Neutrophils # (Auto) 11.0H, Lymphocytes # (Auto) 0.4L, Monocytes # (Auto) 0.5, Eosinophils # (Auto) 0.1, Basophils # (Auto) 0.0, Nucleated Red Blood Cells % (auto) 0.0, Prothrombin Time 15.5H, Prothromb Time International Ratio 1.19, Activated Partial Thromboplast Time 41.5H, Fibrinogen 623H, Anion Gap 11, Glomerular Filtration Rate > 60.0, Calcium Level 8.1L, Phosphorus Level 2.6, Magnesium Level 1.8, Ferritin 4668H, Lactate Dehydrogenase 1399H, Total Creatine Kinase 1189#H, Troponin I 1.27H, MI-Ksl-F-Type Natriuretic Peptide 6686H, Thyroid Stimulating Hormone (TSH) 0.593 07/28/21 02:16: Blood Gas Bicarbonate Standard 20.4L, Arterial Blood pH 7.358, Arterial Blood Partial Pressure CO2 36.2, Arterial Blood Partial Pressure O2 67.3L, Arterial Blood Total CO2 21.0L, Arterial Blood HCO3 19.9L, Arterial Blood Base Excess - 4.8L, Arterial Blood Oxygen Saturation 91.4L 07/28/21 06:15: Immature Granulocyte % (Auto) 1.6, Neutrophils (%) (Auto) 91.3H, Lymphocytes (%) (Auto) 3.7L, Monocytes (%) (Auto) 3.2, Eosinophils (%) (Auto) 0.0, Basophils (%) (Auto) 0.2, Neutrophils # (Auto) 12.7H, Lymphocytes # (Auto) 0.5L, Monocytes # (Auto) 0.5, Eosinophils # (Auto) 0.0, Basophils # (Auto) 0.0, Nucleated Red Blood Cells % (auto) 0.0, Prothrombin Time 15.7H, Prothromb Time International Ratio 1.21, Activated Partial Thromboplast Time 39.9H, Fibrinogen 643H, Anion Gap 8, Glomerular Filtration Rate > 60.0, Calcium Level 8.1L, Magnesium Level 2.1, Ferritin 5154H, Total Bilirubin 0.5, Direct Bilirubin < 0.1, Aspartate Amino Transf (AST/SGOT) 118H, Alanine Aminotransferase (ALT/SGPT) 22, Alkaline Phosphatase 78, Lactate Dehydrogenase 1756H, Total Creatine Kinase 1767H, Troponin I 0.81#H, SN-Wgt-A-Type Natriuretic Peptide 9319H, Total Protein 6.2L, Albumin 2.4L, Albumin/Globulin Ratio 0.6L 07/28/21 10:51: Blood Gas Bicarbonate Standard 21.3L, Arterial Blood pH 7.403, Arterial Blood Partial Pressure CO2 32.6L, Arterial Blood Partial Pressure O2 92.3, Arterial Blood Total CO2 20.9L, Arterial Blood HCO3 19.9L, Arterial Blood Base Excess - 3.8L, Arterial Blood Oxygen Saturation 96.6, Arterial Blood Gas CPAP 14, Arterial Blood Gas PEEP 8, Arterial Blood Gas FiO2 100, Arterial Blood Gas Puncture Site UNKNOWN, Oxygen Delivery Device BIPAP CBC/BMP Laboratory Tests 07/28/21 01:32 07/28/21 06:15 Microbiology Microbiology 07/26/21 Blood Culture - Preliminary, Resulted No Growth after 48 hours. All Specime... 07/26/21 Blood Culture - Preliminary, Resulted No Growth after 48 hours. All Specime... Mira Acuña MD Jul 28, 2021 15:17
[2021-07-28] MEDS: SODIUM CHLORIDE 0.9% INJ 10 ML SYR IV SCH (15:20)
[2021-07-28] MEDS: traZODone 50 MG TAB PO SCH (20:02)
[2021-07-29] VITALS (10 sets, daily range): BP systolic 123–159; BP diastolic 68–92; O2SAT 86–93
[2021-07-29] MEDS: COMBIVENT RESPIMAT 100-20MCG INHALER 4GM INH SCH ×4 (03:40→20:21)
[2021-07-29 05:30] LABS: BASO # 0.1 10^3/uL (0.0-0.2); BASO % 0.3 % (0.0-1.0); EOS % 0.2 % (0.0-3.0); HEMATOCRIT 46.4 % (36.0-47.0); HEMOGLOBIN 15.3 g/dl (12.0-15.5); LYMPH # 0.8 10^3/uL (1.5-5.0); LYMPH % 4.6 % (24.0-44.0); MEAN CORPUSCULAR VOLUME 84.8 fl (80.0-96.0); MONO # 0.7 10^3/uL (0.0-0.8); MONO % 4.6 % (2.0-8.0); NEUTROPHILS # 14.4 10^3/uL (1.5-8.5); PLATELET COUNT, AUTOMATED 183 10^3/uL (150-450); RED BLOOD COUNT 5.47 10^6/uL (4.00-5.40); WHITE BLOOD COUNT 16.2 10^3/uL (4.0-10.0)
[2021-07-29 05:58] LABS: BLOOD UREA NITROGEN 37 MG/DL (7-18); CALCIUM LEVEL 8.5 MG/DL (8.8-10.2); CARBON DIOXIDE LEVEL 27 MEQ/L (21-32); CHLORIDE LEVEL 107 MEQ/L (98-107); CREATININE FOR GFR 0.86 MG/DL (0.55-1.30); GLOMERULAR FILTRATION RATE > 60.0 (>45); GLUCOSE, FASTING 104 MG/DL (70-100); MAGNESIUM LEVEL 2.2 MG/DL (1.8-2.4); POTASSIUM SERUM 3.6 MEQ/L (3.5-5.1); SODIUM LEVEL 141 MEQ/L (136-145)
[2021-07-29] MEDS: BUDESONIDE 180MCG INHALER (PULMICORT FLEXHALER) INH SCH ×2 (08:00→20:21)
--- NOTE | 2021-07-29 08:53 | ECGEPIP ---
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 Rule out prior IWMI. Nonspecific ST/T wave abnormalities Rhythm change from 07/26/21. Clinical correlation advised Electronically Signed on 07-29-2021 8:53:11 EDT by Hari Hatch
[2021-07-29] MEDS: guaiFENesin ER 600 MG TAB PO SCH (09:00)
[2021-07-29] MEDS: ASPIRIN 81MG ENTERIC TABLET PO SCH (09:00)
[2021-07-29] MEDS: FOLIC ACID 1 MG TAB PO SCH (09:00)
[2021-07-29] MEDS: BARICITINIB 2MG TABLET (OLUMIANT) FOR EUA PO SCH (09:56)
[2021-07-29] MEDS: ENOXAPARIN 80MG/0.8ML SYRINGE (J1650 PER 10MG) SC SCH ×2 (09:56→21:30)
[2021-07-29] MEDS: dexameTHASONE 20MG/5ML VIAL (J1100 PER 1MG) IV SCH ×2 (09:58→21:30)
[2021-07-29] MEDS: cefTRIAXone SOD 2 GM in D5W MINI-BAG PLUS 50 ML IV SCH (09:58)
[2021-07-29] MEDS: AZITHROMYCIN INJ 500 MG, VIAL MATE ADAPTER 1 EACH in NS 250 ML IV SCH (10:56)
[2021-07-29] MEDS ORDERED: KETOROLAC 30 MG/ML 1ML VIAL IV PRN (11:10)
--- NOTE | 2021-07-29 11:11 | IPNPDOC ---
Subjective Date Seen The patient was seen on 07/29/21. Subjective Chief Complaint/HPI Patient complains of ongoing shortness of breath and fatigue. She denies fever, chills, chest pain, orthopnea. General: Denies: Chills Constitutional: Denies: Chills, Fever ENT: Denies: Head Aches, Sinus Congestion, Post Nasal Drip Skin: Denies: Rash Pulmonary: Reports: Dyspnea, Cough Cardiovascular: Denies: Chest Pain, Palpitations, Orthopnea, Paroxysmal Noc. Dyspnea, Edema Gastrointestinal: Denies: Nausea, Vomiting Neurological: Denies: Weakness, Numbness Objective Physical Examination General Exam: Positive: Alert, Cooperative, Moderate Distress, Other (2-3 word conversational dyspne) Eye Exam: Positive: PERRLA, Conjunctiva & lids normal, EOMI; Negative: Sclera icteric ENT Exam: Positive: Atraumatic, Mucous membr. moist/pink, Pharynx Normal Neck Exam: Positive: Supple; Negative: JVD, thyromegaly Chest Exam: Positive: Rhonchi (Bilateral), Diminished; Negative: Rales, Wheezing Heart Exam: Positive: Tachycardic, Regular Rhythm, Normal S1, Normal S2; Negative: Murmurs, Rubs Abdomen Exam: Positive: Normal bowel sounds, Soft; Negative: Tenderness Extremity Exam: Negative: Clubbing, Cyanosis, Edema Skin Exam: Positive: Nl turgor and temperature; Negative: Breakdown, Lesion Psych Exam: Positive: Memory Intact, Oriented x 3 Assessment /Plan Assessment This is a 66-year-old female with past medical history of rheumatoid arthritis, RA ILD, chronic hypoxic respiratory failure on 2 L oxygen at home, hypertension, hypothyroidism admitted to the ICU with COVID-19 ARDS and acute on chronic hypoxic respiratory failure. 1. Acute on chronic hypoxic respiratory failure secondary to COVID-19 pneumonia with possible superimposed bacterial pneumonia. 2. 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 History of RA on rituximab, leflunomide, chronic low-dose prednisone therapy. 4. New onset A. fib RVR on anticoagulation 5. Elevated troponin in the setting of critical illness possibly demand ischemia versus NSTEMI Plan/VTE VTE Prophylaxis Ordered?: Yes Plan 1. Continue with current BiPAP setting 15/5 FiO2 100%. Patient is very low threshold for intubation as she is currently BiPAP dependent. Long discussion regarding CODE STATUS and prognosis given her underlying ILD and pulmonary fibrosis. Patient had decided to rescind her DNR/DNI status to full code. She also designated her daughter as healthcare proxy. 2. Continue with baricitinib, remdesivir, dexamethasone. 3. In the setting of progressive elevation of procalcitonin, high index of suspicion for bacterial pneumonia. Therefore I have started the patient on ceftriaxone and azithromycin for community-acquired pneumonia. 4. Encourage self proning. 5. Continue to hold other immunosuppressive therapy for her underlying rheumatoid arthritis. Prognosis remains guarded. CODE STATUS was changed to full code today after a long discussion. Critical care time including goals of care discussion is 25 minutes. Disposition Continue ICU care. VS, I&O, 24H, Fishbone Vital Signs/I&O Vital Signs Date Time Temp Pulse Resp B/P (MAP) Pulse Ox O2 Delivery O2 Flow Rate FiO2 07/29/21 08:19 100 07/29/21 06:00 103 37 153/80 (104) 92 NIPPV (BIPAP/CPAP) 07/29/21 04:00 98.7 07/28/21 09:00 I&O- Last 24 Hours up to 6 AM 07/29/21 06:00 Intake Total 530 ml Output Total 1335 ml Balance -805 ml Laboratory Data 24H LABS Laboratory Tests 2 07/29/21 05:19: Immature Granulocyte % (Auto) 1.3, Neutrophils (%) (Auto) 89.0H, Lymphocytes (%) (Auto) 4.6L, Monocytes (%) (Auto) 4.6, Eosinophils (%) (Auto) 0.2, Basophils (%) (Auto) 0.3, Neutrophils # (Auto) 14.4H, Lymphocytes # (Auto) 0.8L, Monocytes # (Auto) 0.7, Eosinophils # (Auto) 0.0, Basophils # (Auto) 0.1, Nucleated Red Blood Cells % (auto) 0.0, Anion Gap 7L, Glomerular Filtration Rate > 60.0, Calcium Level 8.5L, Magnesium Level 2.2 CBC/BMP Laboratory Tests 07/29/21 05:19 Microbiology Microbiology 07/26/21 Blood Culture - Preliminary, Resulted No Growth after 48 hours. All Specime... 07/26/21 Blood Culture - Preliminary, Resulted No Growth after 48 hours. All Specime... PERRY DUDLEY MD Jul 29, 2021 11:11
[2021-07-29] MEDS ORDERED: ACETAMINOPHEN *IV* 1,000 MG in IV 1 EA IV ONE (11:30)
[2021-07-29] MEDS: HumaLOG INSULIN (NovoLOG) PER UNIT SC SCH ×3 (12:00→23:42)
[2021-07-29] MEDS ORDERED: DEXTROSE 50% 50 ML SYRINGE IV PRN (12:40)
[2021-07-29] MEDS ORDERED: GLUCOSE 4GM CHEW TABLET PO PRN (12:40)
[2021-07-29] MEDS ORDERED: GLUCAGON INJ 1MG VIAL SC PRN (12:40)
[2021-07-29] MEDS: D5W/0.45% SODIUM CHLORIDE 1,000 ML IV SCH (12:40)
--- NOTE | 2021-07-29 13:55 | IPNPDOC ---
Subjective Date Seen The patient was seen on 07/29/21. Subjective Chief Complaint/HPI Remains continuously on BIPAP. On vapotherm desaturating to 75% and takes a long time to come up. Will minimize time taken off BIPAP. Will make pt NPO, stop most oral meds. Will start on maintenance IVF. Patient is Full code now. Remains in moderate distress, RR at 40 with BIPAP. Objective Physical Examination General Exam: Positive: Alert, Cooperative, Moderate Distress, Other (2-3 word conversational dyspnea) Eye Exam: Positive: PERRLA, Conjunctiva & lids normal, EOMI; Negative: Sclera icteric Neck Exam: Positive: Supple; Negative: JVD, thyromegaly Chest Exam: Positive: Diminished Heart Exam: Positive: Tachycardic, Regular Rhythm, Normal S1, Normal S2; Negative: Murmurs, Rubs Abdomen Exam: Positive: Normal bowel sounds, Soft; Negative: Tenderness Extremity Exam: Negative: Clubbing, Cyanosis, Edema Skin Exam: Positive: Nl turgor and temperature; Negative: Breakdown, Lesion Psych Exam: Positive: Memory Intact, Oriented x 3 Assessment /Plan Assessment 66 yo W with a history of rheumatoid arthritis, pulmonary fibrosis w/ chronic hypoxemic respiratory failure on baseline 2L NC, who follows with Dr. Liriano, obesity, HTN, HLD, chronic back pain who developed body aches, congestion, loose stools and fever 7 days ago and presented to the ED on 07/25/21 for persisting symptoms and was found to have covid-19 infection. She was scheduled to get monoclonal antibody infusion and go Home. However due to non availability of staff to do the infusion she was instructed to come back on 07/26/21 for the infusion. On arrival to the infusion unit she was noted to be hypoxic to 76% in room air. She did not have her 2 liters on. She was needing 4 litrs to get her oxygen up to 92%. She was also noted to be hypotensive to 86/ 53 and repeat was 76/44. So she was sent to the ED for evaluation and admission. She complained of feeling extremely weak and tired. She also continues to have green watery diarrhea without any abdominal pains about 3 to 4 times a day. In ED she was needing 3 liters of oxygen. She complains of poor appetite and nausea and unable to take much po. She was admitted for COVID pneumonia with hypoxia, diarrhea and dehydration and hypotension. Covid pneumonia with acute on chronic hypoxic respiratory failure Continue on dexamethasone and remdesivir. Aspirin, Lovenox Have added Olumiant Incentive spirometry, awake proning Currently on BiPAP Avoid sedating medications. started on empiric antibiotics as procalcitonin has increased. Possible sec ondary bacterial infection. ceftriaxone and azithromycin. New onset A. fib with RVR Now back to sinus rhythm Needed one dose of digoxin Lovenox has been increased to therapeutic dosage. Diarrhea, dehydration and hypotension This is due to Covid infection leading to diarrhea with the poor oral intake and continuing to take oral antihypertensive medications. Hypotension has improved. stopped lisinopril hydrochlorothiazide Hyponatremia Due to GI loss, poor oral intake and use of diuretic Improved Pulmonary fibrosis with chronic hypoxic respiratory failure At baseline uses 2 L of oxygen Rheumatoid arthritis On leflunomide at home, Remicade Will avoid sedating medications Plan/VTE VTE Prophylaxis Ordered?: Yes VS, I&O, 24H, Fishbone Vital Signs/I&O Vital Signs Date Time Temp Pulse Resp B/P (MAP) Pulse Ox O2 Delivery O2 Flow Rate FiO2 07/29/21 11:35 100 07/29/21 08:00 98.6 110 40 159/82 (107) 91 NIPPV (BIPAP/CPAP) 07/28/21 09:00 I&O- Last 24 Hours up to 6 AM 07/29/21 06:00 Intake Total 530 ml Output Total 1335 ml Balance -805 ml Laboratory Data 24H LABS Laboratory Tests 2 07/29/21 05:19: Immature Granulocyte % (Auto) 1.3, Neutrophils (%) (Auto) 89.0H, Lymphocytes (%) (Auto) 4.6L, Monocytes (%) (Auto) 4.6, Eosinophils (%) (Auto) 0.2, Basophils (%) (Auto) 0.3, Neutrophils # (Auto) 14.4H, Lymphocytes # (Auto) 0.8L, Monocytes # (Auto) 0.7, Eosinophils # (Auto) 0.0, Basophils # (Auto) 0.1, Nucleated Red Blood Cells % (auto) 0.0, Anion Gap 7L, Glomerular Filtration Rate > 60.0, Calcium Level 8.5L, Magnesium Level 2.2 CBC/BMP Laboratory Tests 07/29/21 05:19 Microbiology Microbiology 07/26/21 Blood Culture - Preliminary, Resulted No Growth after 72 hours. All specime... 07/26/21 Blood Culture - Preliminary, Resulted No Growth after 72 hours. All specime... Mira Acuña MD Jul 29, 2021 13:55
[2021-07-29] MEDS: REMDESIVIR 100 MG in NS 250 ML IV SCH (14:25)
[2021-07-29] MEDS: PANTOPRAZOLE 40MG VIAL (C9113 PER 1) IV SCH ×2 (14:25→21:30)
[2021-07-29] MEDS: SODIUM CHLORIDE 0.9% INJ 10 ML SYR IV SCH (15:20)
[2021-07-30] VITALS (13 sets, daily range): BP systolic 54–196; BP diastolic 24–100; O2SAT 90–93
[2021-07-30] MEDS: COMBIVENT RESPIMAT 100-20MCG INHALER 4GM INH SCH ×6 (00:32→20:00)
[2021-07-30 04:52] LABS: BASO % 0.2 % (0.0-1.0); HEMATOCRIT 41.1 % (36.0-47.0); HEMOGLOBIN 13.6 g/dl (12.0-15.5); LYMPH # 1.1 10^3/uL (1.5-5.0); LYMPH % 7.5 % (24.0-44.0); MEAN CORPUSCULAR HGB CONC 33.1 g/dl (32.0-36.5); MEAN CORPUSCULAR VOLUME 84.7 fl (80.0-96.0); MONO # 0.7 10^3/uL (0.0-0.8); MONO % 4.7 % (2.0-8.0); NEUTROPHILS # 12.5 10^3/uL (1.5-8.5); NEUTROPHILS % 85.3 % (36.0-66.0); PLATELET COUNT, AUTOMATED 184 10^3/uL (150-450); RED BLOOD COUNT 4.85 10^6/uL (4.00-5.40); WHITE BLOOD COUNT 14.6 10^3/uL (4.0-10.0)
[2021-07-30 05:05] LABS: INR 1.83; PROTHROMBIN TIME 21.6 SECONDS (12.7-14.5)
[2021-07-30 05:06] LABS: PARTIAL THROMBOPLASTIN TIME 57.2 SECONDS (25.9-37.0)
[2021-07-30] MEDS: D5W/0.45% SODIUM CHLORIDE 1,000 ML IV SCH ×2 (05:46→16:11)
[2021-07-30] MEDS: HumaLOG INSULIN (NovoLOG) PER UNIT SC SCH ×3 (06:00→18:00)
[2021-07-30 06:17] LABS: ALBUMIN 2.4 GM/DL (3.2-5.2); BILIRUBIN,DIRECT 0.2 MG/DL (0.0-0.2); BILIRUBIN,TOTAL 0.6 MG/DL (0.2-1.0); CALCIUM LEVEL 7.9 MG/DL (8.8-10.2); CREATININE FOR GFR 1.34 MG/DL (0.55-1.30); MAGNESIUM LEVEL 2.6 MG/DL (1.8-2.4); POTASSIUM SERUM 3.9 MEQ/L (3.5-5.1); TOTAL PROTEIN 5.9 GM/DL (6.4-8.2); TROPONIN I 0.27 NG/ML (< 0.10)
[2021-07-30] MEDS ORDERED: HALOPERIDOL 5MG/ML VIAL (J1630 PER 1) IV ONE (06:35)
[2021-07-30] MEDS: BUDESONIDE 180MCG INHALER (PULMICORT FLEXHALER) INH SCH ×2 (07:44→20:00)
[2021-07-30] MEDS ORDERED: ASPIRIN 300 MG SUPP PR SCH (09:00)
[2021-07-30] MEDS: dexameTHASONE 20MG/5ML VIAL (J1100 PER 1MG) IV SCH (09:58)
[2021-07-30] MEDS: AZITHROMYCIN INJ 500 MG, VIAL MATE ADAPTER 1 EACH in NS 250 ML IV SCH (09:59)
[2021-07-30] MEDS: BARICITINIB 2MG TABLET (OLUMIANT) FOR EUA PO SCH (10:00)
[2021-07-30] MEDS: PANTOPRAZOLE 40MG VIAL (C9113 PER 1) IV SCH (10:00)
[2021-07-30] MEDS: cefTRIAXone SOD 2 GM in D5W MINI-BAG PLUS 50 ML IV SCH (10:01)
[2021-07-30] MEDS: ENOXAPARIN 80MG/0.8ML SYRINGE (J1650 PER 10MG) SC SCH (10:01)
[2021-07-30] MEDS ORDERED: hydrALAZINE 20MG/ML 1ML VIAL (J0360 PER 20MG) IV PRN (11:55)
[2021-07-30] MEDS ORDERED: diphenhydrAMINE 50MG/ML VIAL (J1200) IM PRN (11:55)
[2021-07-30] MEDS ORDERED: diphenhydrAMINE 50MG/ML VIAL (J1200) IV PRN (12:05)
--- NOTE | 2021-07-30 12:59 | IPNPDOC ---
Subjective Date Seen The patient was seen on 07/30/21. Subjective Chief Complaint/HPI Patient not doing well she is on high BiPAP support but still unable to maintain her oxygenation I anticipate she will need to be intubated today. We are unable to take her off the BiPAP even for a few minutes because her saturations are going down to 60s and it takes her are a long time to come back up. Objective Physical Examination General Exam: Positive: Alert, Cooperative, Severe Distress, Other Eye Exam: Positive: Conjunctiva & lids normal, EOMI; Negative: Sclera icteric Neck Exam: Positive: Supple; Negative: JVD, thyromegaly Chest Exam: Positive: Diminished Heart Exam: Positive: Tachycardic, Regular Rhythm, Normal S1, Normal S2; Negative: Murmurs, Rubs Abdomen Exam: Positive: Normal bowel sounds, Soft; Negative: Tenderness Extremity Exam: Negative: Clubbing, Cyanosis, Edema Skin Exam: Positive: Nl turgor and temperature; Negative: Breakdown, Lesion Psych Exam: Positive: Memory Intact, Oriented x 3 Assessment /Plan Assessment 66 yo W with a history of rheumatoid arthritis, pulmonary fibrosis w/ chronic hypoxemic respiratory failure on baseline 2L NC, who follows with Dr. Liriano, obesity, HTN, HLD, chronic back pain who developed body aches, congestion, loose stools and fever 7 days ago and presented to the ED on 07/25/21 for persisting symptoms and was found to have covid-19 infection. She was scheduled to get monoclonal antibody infusion and go Home. However due to non availability of staff to do the infusion she was instructed to come back on 07/26/21 for the infusion. On arrival to the infusion unit she was noted to be hypoxic to 76% in room air. She did not have her 2 liters on. She was needing 4 litrs to get her oxygen up to 92%. She was also noted to be hypotensive to 86/ 53 and repeat was 76/44. So she was sent to the ED for evaluation and admission. She complained of feeling extremely weak and tired. She also continues to have green watery diarrhea without any abdominal pains about 3 to 4 times a day. In ED she was needing 3 liters of oxygen. She complained of poor appetite and nausea and unable to take much po. She was admitted for COVID pneumonia with hypoxia, diarrhea and dehydration and hypotension. Covid pneumonia with acute on chronic hypoxic respiratory failure Continue on dexamethasone and remdesivir. Aspirin, Lovenox Have added Olumiant Incentive spirometry, awake proning Currently on BiPAP 05/08 not mainlining oxygenation. Will likely need intubation today. Avoid sedating medications. benadryl for anxiety started on empiric antibiotics as procalcitonin has increased. Possible secondary bacterial infection. ceftriaxone and azithromycin. New onset A. fib with RVR Now back to sinus rhythm Needed one dose of digoxin Lovenox has been increased to therapeutic dosage. Hypertension started on hydralazine Diarrhea, dehydration and hypotension This is due to Covid infection leading to diarrhea with the poor oral intake and continuing to take oral antihypertensive medications. resolved. stopped lisinopril hydrochlorothiazide Hyponatremia Due to GI loss, poor oral intake and use of diuretic resolved Pulmonary fibrosis with chronic hypoxic respiratory failure At baseline uses 2 L of oxygen Rheumatoid arthritis On leflunomide at home, Remicade Will avoid sedating medications Plan/VTE VTE Prophylaxis Ordered?: Yes VS, I&O, [facility], [facility] Vital Signs/I&O Vital Signs Date Time Temp Pulse Resp B/P (MAP) Pulse Ox O2 Delivery O2 Flow Rate FiO2 07/30/21 12:22 196/100 07/30/21 08:00 98.9 101 30 88 NIPPV (BIPAP/CPAP) 100 07/28/21 09:00 I&O- Last 24 Hours up to 6 AM 07/30/21 06:00 Intake Total 935 ml Output Total 415 ml Balance 520 ml Laboratory Data 24H LABS Laboratory Tests 2 07/29/21 18:09: Bedside Glucose (Misc Panel) 157H 07/29/21 23:41: Bedside Glucose (Misc Panel) 183H 07/30/21 04:43: Immature Granulocyte % (Auto) 2.3, Neutrophils (%) (Auto) 85.3H, Lymphocytes (%) (Auto) 7.5L, Monocytes (%) (Auto) 4.7, Eosinophils (%) (Auto) 0.0, Basophils (%) (Auto) 0.2, Neutrophils # (Auto) 12.5H, Lymphocytes # (Auto) 1.1L, Monocytes # (Auto) 0.7, Eosinophils # (Auto) 0.0, Basophils # (Auto) 0.0, Nucleated Red Blood Cells % (auto) 0.0, Prothrombin Time 21.6H, Prothromb Time International Ratio 1.83, Activated Partial Thromboplast Time 57.2H, Fibrinogen 657H, Anion Gap 8, Glomerular Filtration Rate 42.0L, Calcium Level 7.9L, Magnesium Level 2.6 H, Ferritin 4284H, Total Bilirubin 0.6, Direct Bilirubin 0.2, Aspartate Amino Transf (AST/SGOT) 50H, Alanine Aminotransferase (ALT/SGPT) 24, Alkaline Phosphatase 87, Lactate Dehydrogenase 1530H, Total Creatine Kinase 918H, Troponin I 0.27#H, WF-Gys-W-Type Natriuretic Peptide 4860H, Total Protein 5.9L, Albumin 2.4L, Albumin/Globulin Ratio 0.7L 07/30/21 11:47: Bedside Glucose (Misc Panel) 161H CBC/BMP Laboratory Tests 07/30/21 04:43 Microbiology Microbiology 07/26/21 Blood Culture - Preliminary, Resulted No Growth after 72 hours. All specime... 07/26/21 Blood Culture - Preliminary, Resulted No Growth after 72 hours. All specime... Mira Acuña MD Jul 30, 2021 12:59
[2021-07-30] MEDS ORDERED: ETOMIDATE INJ 20MG/10ML VIAL IV STA (14:08)
[2021-07-30] MEDS ORDERED: propofoL 200 MG/20 ML VIAL IV ONE (14:08)
[2021-07-30] MEDS ORDERED: SUCCINYLCHOLINE INJ 200 MG/10 ML VIAL (J0330) IV STA (14:08)
[2021-07-30] MEDS ORDERED: ATROPINE SULF 1MG/10ML SYRINGE (J0461) As Ordered ONE (14:23)
--- NOTE | 2021-07-30 14:26 | IPNPDOC ---
Subjective Date Seen The patient was seen on 07/30/21. Subjective Chief Complaint/HPI Patient is very apprehensive and very labile. She admits to experiencing extreme shortness of breath. She denies of fever, chills, cough, palpitation, chest pain. General: Denies: Chills Constitutional: Denies: Chills, Fever Eyes: Denies: Pain ENT: Denies: Head Aches Skin: Denies: Rash Pulmonary: Reports: Dyspnea; Denies: Cough Cardiovascular: Denies: Chest Pain, Palpitations, Orthopnea Musculoskeletal: Denies: Neck Pain Neurological: Denies: Weakness Objective Physical Examination General Exam: Positive: Alert, Cooperative, Severe Distress, Other (Extreme labored breathing) Eye Exam: Positive: Conjunctiva & lids normal, EOMI; Negative: Sclera icteric Neck Exam: Positive: Supple; Negative: JVD, thyromegaly Chest Exam: Positive: Diminished Heart Exam: Positive: Tachycardic, Regular Rhythm, Normal S1, Normal S2; Negative: Murmurs, Rubs Abdomen Exam: Positive: Normal bowel sounds, Soft; Negative: Tenderness Extremity Exam: Negative: Clubbing, Cyanosis, Edema Skin Exam: Positive: Nl turgor and temperature; Negative: Breakdown, Lesion Psych Exam: Positive: Memory Intact, Oriented x 3, Other (Extremely anxious) Assessment /Plan Assessment This is a 66-year-old female with past medical history of rheumatoid arthritis, RA ILD, chronic hypoxic respiratory failure on 2 L oxygen at home, hypertension, hypothyroidism admitted to the ICU with COVID-19 ARDS and acute on chronic hypoxic respiratory failure. 1. Acute on chronic hypoxic respiratory failure secondary to COVID-19 pneumonia with possible superimposed bacterial pneumonia. 2. 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 History of RA on rituximab, leflunomide, chronic low-dose prednisone therapy. 4. New onset A. fib RVR on anticoagulation 5. Elevated troponin in the setting of critical illness possibly demand ischemia versus NSTEMI Plan/VTE VTE Prophylaxis Ordered?: Yes Plan #Acute hypoxic respiratory failure secondary to COVID-19 ARDS -After having a long discussion regarding her worsening respiratory failure despite maximum support with BiPAP therapy, patient decided to proceed with intubation knowing the prognosis is not favorable for her. Patient will be intubated targeting low plateau pressure less than 20, high PEEP low FiO2, low tidal volume ventilation method. She may also need to be paralyzed and prone depending on PF ratio after intubation. #COVID-19 ARDS -Management as above regarding ventilator. We will continue with baricitinib, dexamethasone and remdesivir. She is also on ceftriaxone and azithromycin for superimposed community-acquired pneumonia given trended up procalcitonin level. #JASON -Likely prerenal given poor oral intake. This is also evident by BUN/creatinine ratio. We will start patient on tube feed after she is intubated. #History is of rheumatoid arthritis with RA ILD -Currently getting treatment with dexamethasone and baricitinib for COVID-19. We are currently holding all her immunosuppressive's therapy for rheumatoid arthritis. #Chronic hypoxic respiratory failure secondary to RA-ILD and pulmonary fibrosis -She was on 2 L oxygen at home. #History is of hypertension and hypothyroidism -Not in acute issues and currently normotensive. We will hold all. DVT prophylaxis: Lovenox GI prophylaxis: Protonix Diet: Tube feed to be started tomorrow. Prognosis: Remains critical and guarded. Patient and her daughter who is her healthcare proxy has been updated. Critical care time excluding procedure is 60 minutes. Disposition Continue ICU care. VS, I&O, 24H, [facility] Vital Signs/I&O Vital Signs Date Time Temp Pulse Resp B/P (MAP) Pulse Ox O2 Delivery O2 Flow Rate FiO2 07/30/21 12:22 196/100 07/30/21 08:00 98.9 101 30 88 NIPPV (BIPAP/CPAP) 100 07/28/21 09:00 I&O- Last 24 Hours up to 6 AM 07/30/21 06:00 Intake Total 935 ml Output Total 415 ml Balance 520 ml Laboratory Data 24H LABS Laboratory Tests 2 07/29/21 18:09: Bedside Glucose (Misc Panel) 157H 07/29/21 23:41: Bedside Glucose (Misc Panel) 183H 07/30/21 04:43: Immature Granulocyte % (Auto) 2.3, Neutrophils (%) (Auto) 85.3H, Lymphocytes (%) (Auto) 7.5L, Monocytes (%) (Auto) 4.7, Eosinophils (%) (Auto) 0.0, Basophils (%) (Auto) 0.2, Neutrophils # (Auto) 12.5H, Lymphocytes # (Auto) 1.1L, Monocytes # (Auto) 0.7, Eosinophils # (Auto) 0.0, Basophils # (Auto) 0.0, Nucleated Red Blood Cells % (auto) 0.0, Prothrombin Time 21.6H, Prothromb Time International Ratio 1.83, Activated Partial Thromboplast Time 57.2H, Fibrinogen 657H, Anion Gap 8, Glomerular Filtration Rate 42.0L, Calcium Level 7.9L, Magnesium Level 2.6H, Ferritin 4284H, Total Bilirubin 0.6, Direct Bilirubin 0.2, Aspartate Amino Transf (AST/SGOT) 50H, Alanine Aminotransferase (ALT/SGPT) 24, Alkaline Phosphatase 87, Lactate Dehydrogenase 1530H, Total Creatine Kinase 918H, Troponin I 0.27#H, QK-Qfr-A-Type Natriuretic Peptide 4860H, Total Protein 5.9L, Albumin 2.4L, Albumin/Globulin Ratio 0.7L 07/30/21 11:47: Bedside Glucose (Misc Panel) 161H CBC/BMP Laboratory Tests 07/30/21 04:43 Microbiology Microbiology 07/26/21 Blood Culture - Preliminary, Resulted No Growth after 72 hours. All specime... 07/26/21 Blood Culture - Preliminary, Resulted No Growth after 72 hours. All specime... PERRY DUDLEY MD Jul 30, 2021 14:26
[2021-07-30] MEDS ORDERED: ATROPINE SULF 1MG/10ML SYRINGE (J0461) IV STA (14:32)
[2021-07-30] MEDS ORDERED: NOREPINEPHRINE BITARTRATE 8 MG in D5W 492 ML IV SCH (14:40)
[2021-07-30] MEDS ORDERED: NOREPINEPHRINE 4 MG/4 ML AMP As Ordered ONE (14:51)
--- NOTE | 2021-07-30 14:58 | REP ---
INDICATION: S/P ET intubation COMPARISON: 07/27/2021 TECHNIQUE: Portable AP view of the chest FINDINGS: Endotracheal tube extends to the rio and requires repositioning. Nasogastric tube courses below left hemidiaphragm in satisfactory position. The mediastinum and cardiac silhouette are stable and within normal limits for portable technique. The lung forman demonstrate diffuse alveolar and interstitial opacities which may be slightly improved from prior examination. No effusion. No pneumothorax. Skeletal structures are intact. IMPRESSION: 1. Endotracheal tube at the rio requires repositioning. 2. Improved aeration with continued bilateral alveolar and interstitial opacities suggested. <Electronically signed by Sergio Chatman > 07/30/21 [id number]
[2021-07-30] MEDS: REMDESIVIR 100 MG in NS 250 ML IV SCH (15:00)
[2021-07-30] MEDS: SODIUM CHLORIDE 0.9% INJ 10 ML SYR IV SCH (15:00)
--- NOTE | 2021-07-30 16:04 | ROOPDOC ---
[facility] Report Of Operation Report of Operation DATE OF PROCEDURE: 07/30/21 PROCEDURE PERFORMED: Right femoral central venous catheter insertion. PREPROCEDURE DIAGNOSES: Cardiopulmonary arrest. POSTPROCEDURE DIAGNOSES: Cardiopulmonary arrest. Consent: Procedure was done emergently. SURGEON: Dr. Eros MD ESTIMATED BLOOD LOSS: Approximately 5 mL. COMPLICATIONS: None. DESCRIPTION OF PROCEDURE: This procedure was done emergently and in a nonsterile fashion. The right inguinal region was prepped using chlorhexidine scrub. The femoral pulse was identified doing CPR. Palpating the femoral pulse throughout the procedure, the introducer needle was inserted medial to the femoral artery, inferior to the inguinal crease and into the femoral vein. Venous blood was withdrawn. The syringe was removed and a guidewire was advanced into the introducer needle. A small incision was made at the skin surface with a scalpel and the introducer needle was exchanged for a dilator over the guidewire. After appropriate dilation was obtained, the dilator was exchanged over the wire for a triple lumen central venous catheter. The wire was removed and the catheter was sutured in place at 20 cm. A sterile sorbaview shield was placed over the catheter at the insertion site. The patient tolerated the procedure without any hemodynamic compromise. At time of procedure completion, all ports aspirated and flushed properly. Estimated blood loss is 5cc. PERRY DUDLEY MD Jul 30, 2021 16:04
--- NOTE | 2021-07-31 17:13 | ECHO ---
ECHOCARDIOGRAM DATE OF PROCEDURE: 07/30/2021 Age: 66 Gender: Female Height: 163 cm Weight: 84 kg REFERRING PROVIDER: Dayanara Purcell M.D. PATIENT LOCATION: ROOM 3209. REASON FOR THE TESTING: Elevated troponin, pulmonary fibrosis, COVID19. MEASUREMENTS: 2D Measurements: IVS 1.7 cm LV 3.4 cm LVPW 1.3 cm LA 2.8 cm Aorta 3.2 cm Doppler Measurements: Peak velocity across the aortic valve 1.8 m/sec Peak velocity across the LVOT 1.1 m/sec Mitral E 0.49 Mitral A 0.74 with a ratio of 0.7 Maximum tricuspid valve velocity 5.0 m/sec 2D COMMENTS: 1. Normal left ventricular size with moderately increased left ventricular wall thickness. Left ventricular systolic function is normal, estimated at 60-65%. 2. Normal left atrium. Dilated right atrium and right ventricle. The right ventricular free wall seems to be hypokinetic. 3. The atrial septum appeared to be normal without evidence of defect or shunt. 4. Normal aortic root. 5. Trace pericardial effusion noted. No evidence of cardiac tamponade. 6. Mildly calcified aortic valve with normal leaflet excursion. Normal mitral valve, tricuspid valve and pulmonic valve. The proximal pulmonary artery branches appear to be normal in size. 7. The inferior vena cava was not visualized. DOPPLER: It detects trace aortic regurgitation, trace mitral regurgitation, moderated tricuspid regurgitation. There are findings consistent with severe pulmonary hypertension. Abnormal relaxation pattern was noted across the mitral valve leaflet as well as the mitral valve annulus consistent with features of grade 1 left ventricular diastolic dysfunction. IMPRESSION: 1. Normal global left ventricular systolic function with moderate concentrical left ventricular hypertrophy. There are some findings of grade 1 left ventricular systolic dysfunction manifested by abnormal relaxation. 2. Aortic valve sclerosis with trace aortic regurgitation and trivial aortic stenosis. 3. Trace mitral regurgitation. 4. Moderate tricuspid regurgitation with dilated right heart chambers and severe pulmonary hypertension. However, calculated pulmonary artery systolic pressure is probably overestimated. 5. Trace pericardial effusion with no evidence of cardiac tamponade.
--- NOTE | 2021-08-01 11:58 | DS.PDOC ---
Discharge Summary General Date of Admission Jul 26, 2021 at 14:18 Date of Discharge 07/30/21 Discharge Summary PROCEDURES PERFORMED DURING STAY: [None]. DISCHARGE DIAGNOSES: Acute on hypoxic respiratory failure due to Covid pneumonia Secondary bacterial pneumonia A. fib with RVR Hyponatremia Dehydration and hypotension on presentation History of hypertension Rheumatoid arthritis with interstitial lung disease Pulmonary fibrosis with chronic hypoxic respiratory failure Obese Chronic back pain COMPLICATIONS/CHIEF COMPLAINT: Covid-19, Pulmonary Fibrosis. HOSPITAL COURSE: 66 yo W with a history of rheumatoid arthritis, pulmonary fibrosis w/ chronic hypoxemic respiratory failure on baseline 2L NC, who follows with Dr. Liriano, obesity, HTN, HLD, chronic back pain who developed body aches, congestion, loose stools and fever 7 days ago and presented to the ED on 07/25/21 for persisting symptoms and was found to have covid-19 infection. She was scheduled to get monoclonal antibody infusion and go Home. However due to non availability of staff to do the infusion she was instructed to come back on 07/26/21 for the infusion. On arrival to the infusion unit she was noted to be hypoxic to 76% in room air. She did not have her 2 liters on. She was needing 4 litrs to get her oxygen up to 92%. She was also noted to be hypotensive to 86/ 53 and repeat was 76/44. So she was sent to the ED for evaluation and admission. She complained of feeling extremely weak and tired. She also continues to have green watery diarrhea without any abdominal pains about 3 to 4 times a day. In ED she was needing 3 liters of oxygen. She complained of poor appetite and nausea and unable to take much po. She was admitted for COVID pneumonia with hypoxia, diarrhea and dehydration and hypotension. Patient's hypotension improved with hydration however her oxygen requirement continues to increase. She went into acute on chronic hypoxic respiratory failure requiring more and more oxygen she was placed on Vapotherm however that was not enough then she was rapidly deteriorated needing BiPAP support and she was moved to ICU. She was in ICU for several days with worsening hypoxia on BiPAP. She also went into A. fib with RVR . She was 100% FiO2 and BiPAP still becoming hypoxic to 80s with respiratory rate in 40s. She was in respiratory fatigue. She initially wanted to be DNR/DNI however then she later rescinded DNR/DNI and wanted to be resuscitated. So after much discussion with the patient and family over face time it was decided to intubate her on 07/30/2021. Anaesthesia performed intubation. Within a few minutes after intubation see she can become bradycardic and went into cardiorespiratory arrest. Resuscitation was started as per ACLS protocol. Resuscitation efforts were continued for 40 minutes with no sustainable return of circulation. Patient was pronounced on 07/30/2021 at 1507 p.m. DISPOSITION: 20 . TIME SPENT ON DISCHARGE: 35 minutes. Vital Signs/I&Os Vital Signs Date Time Temp Pulse Resp B/P (MAP) Pulse Ox O2 Delivery O2 Flow Rate FiO2 07/30/21 15:07 116 141/89 (106) 84 100 07/30/21 14:30 Ventilator 07/30/21 14:04 38 07/30/21 12:00 99.0 07/28/21 09:00 Microbiology Microbiology 07/26/21 Blood Culture - Final, Complete NO GROWTH AFTER 5 DAYS 07/26/21 Blood Culture - Final, Complete NO GROWTH AFTER 5 DAYS Discharge Medications Scheduled Folic Acid (Folic Acid) 1 Mg Tablet, 1 MG PO DAILY, (Reported) Leflunomide (Leflunomide) 20 Mg Tablet, 20 MG PO DAILY, (Reported) Lisinopril/Hydrochlorothiazide (Lisinopril-Hctz 10-12.5 mg Tab) 1 Each Tablet, 1 TAB PO DAILY, (Reported) Rosuvastatin Calcium (Rosuvastatin Calcium) 10 Mg Tablet, 10 MG PO DAILY, (Reported) Simvastatin (Simvastatin) 10 Mg Tablet, 10 MG PO QHS, (Reported) Trazodone HCl (Trazodone HCl) 50 Mg Tablet, 50 MG PO QHS, (Reported) Scheduled PRN Albuterol Sulfate (Albuterol Sulfate Hfa) 8.5 Gm Hfa.aer.ad, 1 PUFF INH PRN PRN for SHORTNESS OF BREATH, (Reported) Azelastine HCl (Azelastine HCl) 0.1% [place].pump, 1 SPRAY INH PRN PRN for CONGESTION, (Reported) Ondansetron (Ondansetron Odt) 4 Mg Tab.rapdis, 1 TAB PO Q6-8HP PRN for nausea/vomiting Oxycodone HCl/Acetaminophen (Oxycodone-Acetaminophen 10-325) 1 Each Tablet, 1 TAB PO Q6H PRN for PAIN LEVEL 5-10, (Reported) Allergies Coded Allergies: codeine (Verified Allergy, Unknown, respiratory issues, 03/27/20) Mira Acuña MD Aug 01, 2021 11:58
== END 2021-07-30 18:45 | disposition expired | DRG 177 ==
LOC: M ED 11:30 → M ED INP 14:18 → ENRESERV 15:03 → M 4MAIN 16:50 → M ICU 07-27 22:35
PROVIDERS: ADMIT Internal Medicine Nephrology; ATTEND Internal Medicine Nephrology
PROC: XW033E5 Introduction of Remdesivir Anti-infective into Peripheral Vein, Percutaneous Approach, New Technology Group 5 (ICD-10-PCS; 2021-07-26)
PROC: 3E0333Z Introduction of Anti-inflammatory into Peripheral Vein, Percutaneous Approach (ICD-10-PCS; 2021-07-26)
PROC: 06HM33Z Insertion of Infusion Device into Right Femoral Vein, Percutaneous Approach (ICD-10-PCS; principal; 2021-07-30)
PROC: 0BH17EZ Insertion of Endotracheal Airway into Trachea, Via Natural or Artificial Opening (ICD-10-PCS; 2021-07-30)
DX: U07.1 COVID-19 (principal); J12.82 Pneumonia due to coronavirus disease 2019; J96.21 Acute and chronic respiratory failure with hypoxia; J15.9 Unspecified bacterial pneumonia; E87.1 Hypo-osmolality and hyponatremia; N17.9 Acute kidney failure, unspecified; I46.9 Cardiac arrest, cause unspecified; M06.9 Rheumatoid arthritis, unspecified; J84.10 Pulmonary fibrosis, unspecified; E66.9 Obesity, unspecified; I10 Essential (primary) hypertension; E78.5 Hyperlipidemia, unspecified; M54.9 Dorsalgia, unspecified; I48.91 Unspecified atrial fibrillation; E87.6 Hypokalemia; R77.8 Other specified abnormalities of plasma proteins; I95.9 Hypotension, unspecified; E03.9 Hypothyroidism, unspecified; Z79.899 Other long term (current) drug therapy; Z88.5 Allergy status to narcotic agent; Z90.49 Acquired absence of other specified parts of digestive tract; Z98.1 Arthrodesis status; Z87.891 Personal history of nicotine dependence; Z68.31 Body mass index [BMI] 31.0-31.9, adult; Z99.81 Dependence on supplemental oxygen